=== PATIENT | female | born 1960 | race Caucasian/White ===

== ENCOUNTER 2022-08-31 10:30 | Emergency (ER) | payer MEDICAID, SELFPAY ==
[2022-08-31 10:31] VITALS: BP 139/85; PULSE 101; RESP 25; TEMP 37.3; O2SAT 94; BMI 20.1
[2022-08-31 10:39] VITALS: BP 139/85; PULSE 111; RESP 25; O2SAT 93
--- NOTE | 2022-08-31 10:39 | XRR_ITS ---
PROCEDURE INFORMATION: Exam: XR Chest Exam date and time: 08/31/2022 11:10 AM Age: 62 years old Clinical indication: Cough and shortness of breath; Additional info: Dyspnea/cough TECHNIQUE: Imaging protocol: Radiologic exam of the chest. Views: 1 view. COMPARISON: CT chest con [id number] 12/28/2018 11:58 AM FINDINGS: Airway: The trachea is deviated to the right. Lungs: There is new airspace disease in the right mid and lower lung zone silhouetting out the right hilum. No left-sided airspace disease. Pleural spaces: There is now a probably loculated right pleural effusion, at least moderate volume. No pneumothorax. No left pleural effusion. Heart/Mediastinum: The right border of the cardiac silhouette is silhouetted out but the heart is not felt to be enlarged. Bones/joints: No acute osseous abnormality XR/XR chest 1V portable [id number] IMPRESSION: New right-sided airspace disease and right pleural effusion. Given the unilaterality and the significant degree of change since the prior comparison study, further evaluation with CT CHEST with IV contrast is recommended as there is the possibility of interval development of neoplasm.
--- NOTE | 2022-08-31 10:47 | ED_ITS ---
HPI - SOB/Dyspnea General: Chief Complaint: Shortness of Breath/Dyspnea Stated Complaint: RESP DISTRESS Time Seen by Provider: 08/31/22 10:37 Source: patient Mode of arrival: ambulatory History of Present Illness: HPI Narrative: 62-year-old female presents emergency room complaining of productive cough. Patient has a history of COPD continues to smoke daily. EMS was called for productive cough shortness of breath she is found to be at 75% on room air on arrival. Normally she does not use any oxygen. She was given 6 mg dexamethasone. She has had intermittently productive cough for the last several days she feels like some progressively worsening low-grade fever as well. No vomiting no diarrhea no anosmia she denies chest or abdominal pain. MD elicited complaint: shortness of breath and cough Pertinent past history: COPD Onset (ago): day(s) Timing: constant and progressively worsening Severity: moderate Exacerbating factors: exertion and coughing Relieving factors: oxygen, rest and upright position Known history of: COPD Associated symptoms: Reports chest congestion and cough; Deny abdominal pain, chest pain, diaphoresis, dizziness, extremity pain, fever(s), hemoptysis, lightheadedness, myalgias, nausea, orthopnea, palpitations, paresthesias, polydipsia, polyuria, rash, sense of impending doom, syncope or vomiting Treatment prior to arrival: oxygen and other (Steroids) Review of Systems Const: Denies: fever(s) or diaphoresis ENMT: Denies: throat pain, ear or mastoid pain, nasal discharge or nasal congestion Card: Denies: chest pain, palpitations, lightheadedness, syncope or orthopnea Resp: Reports: chest congestion; Denies: hemoptysis GI: Denies: abdominal pain, nausea or vomiting : Denies: flank pain, difficulty voiding, dysuria, urinary frequency or urinary urgency Musc: Denies: extremity pain Skin/Breast: Denies: rash or pruritus Neuro: Denies: dizziness Endo: Denies: polyuria or polydipsia Physical Exam Const: COMMON NORMALS: no acute distress GENERAL APPEARANCE: cooperative and comfortable ORIENTATION/CONSCIOUSNESS: Yes awake, Yes oriented to person, Yes oriented to place and Yes oriented to time HENMT: COMMON NORMALS: normocephalic, atraumatic, hearing grossly normal bilaterally, external ears normal, EAC's normal, TM's normal bilaterally, Normal nasal mucous membranes and turbinates present, moist oral mucous membranes and oropharynx normal HEAD & SCALP: normocephalic and atraumatic NOSE: Normal nasal mucous membranes and turbinates present EXTERNAL EAR: Yes external ears normal EXTERNAL AUDITORY CANAL: EAC's normal TYMPANIC MEMBRANE: TM's normal bilaterally Eye: COMMON NORMALS: Equal, round and reactive pupils present, EOMs intact bilaterally, conjunctivae normal and no scleral icterus CONJUNCTIVA: Yes conjunctivae normal PUPIL: Yes Equal, round and reactive pupils present Neck/C-Spine: COMMON NORMALS: full ROM, no lymphadenopathy, supple and no JVD Lymph: LYMPHATIC: no lymphadenopathy noted and no lymphedema noted Resp: COMMON NORMALS: normal respiratory effort, No retractions, No use of accessory muscles and clear to auscultation bilaterally AUSCULTATION: clear to auscultation bilaterally Cardio: COMMON NORMALS: no JVD, regular rate, regular rhythm and No murmurs present (Cardio) RATE: regular rate RHYTHM: regular rhythm GI: COMMON NORMALS: Soft to palpation and No hepatosplenomegaly present AUSCULTATION: Yes normoactive bowel sounds PALPATION: Yes Soft to palpation, No Tenderness to palpation present (GI), No Guarding due to palpation present (G I) and Yes No hepatosplenomegaly present Extremity: COMMON NORMALS: normal to inspection, capillary refill normal, no clubbing, cyanosis or edema, no calf tenderness and no pedal edema Neuro: SENSORIUM/ORIENTATION: Yes oriented to person, Yes oriented to place and Yes oriented to time Skin: COMMON NORMALS: no rashes or lesions noted GENERAL SKIN EXAM: no rashes or lesions noted Course Vital Signs: Vital signs: Vital Signs Temperature 99.1 F 08/31/22 10:31 Pulse Rate 93 08/31/22 12:59 Respiratory Rate 19 H 08/31/22 12:59 Blood Pressure 119/73 08/31/22 12:59 Pulse Oximetry 96 08/31/22 12:59 Oxygen Delivery Me thod 08/31/22 12:59 Oxygen Flow Rate 5 08/31/22 12:59 MDM - SOB/Dyspnea Medical Decision Making Leukocytosis with large right pleural effusion. Strongly suspect carcinoma of the lung. Patient left AGAINST MEDICAL ADVICE. I counseled her on the importance of treatment and the seriousness of her condition especially her hypoxia. Uses to stay. She acknowledges that there is a high probability of significant decline in occluding potential for if she is not adequately tr eated and she still wishes to go Medical Records I reviewed the patient's medical records. Lab Data I reviewed the patient's lab results. : 08/31/22 10:45 08/31/22 10:45 Labs/Radiology: Radiology Impressions Chest X-Ray 08/31/22 10:39 IMPRESSION: New right-sided airspace disease and right pleural effusion. Given the unilaterality and the significant degree of change since the prior comparison study, further evaluation with CT CHEST with IV contrast is recommended as there is the possibility of interval development of neoplasm. ADDENDUM: 08/31/22 1154 There may be a subacute or chronic fracture of the posterolateral left 6th rib. ADDENDUM: 08/31/22 1155 THIS REPORT CONTAINS FINDINGS THAT MAY BE CRITICAL TO PATIENT CARE. The exam findings were verbally communicated by me to DR. LABOY via telephone conference at 11:50 AM CDT on 08/31/2022. The critical nature of the findings was acknowledged. DR. LABOY indicated they would relay the critical findings to DR. JENSEN, who is currently unavailable for a telephone conference. Chest CTA 08/31/22 11:15 IMPRESSION: 1. No sign of acute pulmonary embolism. 2. Occlusion of the bronchus intermedius and majority of the right middle and lower lobe bronchi. While there appears to be some fluid within the structures, an endobronchial mass cannot be excluded. 3. Consolidation in the right middle and lower lobes. This likely represents postobstructive pneumonia/atelectasis. 4. Right hilar and mediastinal lymphadenopathy. This represents an interval change since the prior comparison exam. 5. Loculated large right pleural effusion. Malignant pleural effusion not excluded. ADDENDUM: 08/31/22 1314 Findings were discussed with NELLI JENSEN at 08/31/2022 1:09 PM CDT. Discussed that I feel the findings are most likely due to bronchogenic malignancy, but additional workup is needed to confirm and stage. Laboratory Results WBC 23.5 10^3/uL (4.0-10.0) H 08/31/22 10:45 RBC 4.21 10^6/uL (4.1-5.3) 08/31/22 10:45 Hgb 13.2 g/dL (11.5-15.3) 08/31/22 10:45 Hct 40.7 % (37.0-47.0) 08/31/22 10:45 MCV 96.7 fl (81-99) 08/31/22 10:45 MCH 31.4 pg (28.0-34.0) 08/31/22 10:45 MCHC 32.4 g/dL (30.0-36.0) 08/31/22 10:45 RDW 13.9 % (12.1-15.1) 08/31/22 10:45 Plt Count 373 10^3/cmm (130-400) 08/31/22 10:45 MPV 8.7 fL (7.4-10.4) 08/31/22 10:45 Neut % (Auto) 90.7 % 08/31/22 10:45 Lymph % (Auto) 2.1 % 08/31/22 10:45 Mitchell % (Auto) 5.1 % 08/31/22 10:45 Eos % (Auto) 0.1 % 08/31/22 10:45 Baso % (Auto) 0.3 % 08/31/22 10:45 Neut # (Auto) 21.29 10^3/uL (1.8-7.7) H 08/31/22 10:45 Lymph # (Auto) 0.5 10^3/uL (0.8-4.8) L 08/31/22 10:45 Mitchell # (Auto) 1.2 10^3/uL (0.2-0.9) H 08/31/22 10:45 Eos # (Auto) 0.0 10^3/uL (0.0-0.8) 08/31/22 10:45 Baso # (Auto) 0.1 10^3/uL (0.0-0.1) 08/31/22 10:45 Nucleated RBC % (auto) 0 % 08/31/22 10:45 Nucleated RBCs # 0.0 /100WBC 08/31/22 10:45 Specimen Type Arterial 08/31/22 10:57 Sample Site Brachial, right 08/31/22 10:57 ABG pH 7.47 (7.35-7.45) H 08/31/22 10:57 ABG pCO2 42.9 mmHg (35-45) 08/31/22 10:57 ABG pO2 65.4 mmHg (80.0-100.0) L 08/31/22 10:57 ABG HCO3 31.4 mmol/L (22-26) H 08/31/22 10:57 ABG O2 Saturation 93.1 08/31/22 10:57 ABG Base Excess 7.0 mmol/L (-2.0-2.0) H 08/31/22 10:57 Rey Test N/a 08/31/22 10:57 A-a O2 Gradient 21.8 mmHg (5-10) H 08/31/22 10:57 Hematocrit 40.2 % (37-47) 08/31/22 10:57 Hgb O2 Saturation 90.3 % (95-100) L 08/31/22 10:57 Carboxyhemoglobin 2.4 %THgb (0.4-20.1) 08/31/22 10:57 Methemoglobin 0.7 % (0.4-1.5) 08/31/22 10:57 Total Hemoglobin 13.1 g/dL (12-16) 08/31/22 10:57 Sodium 127.0 mmol/L (131-143) L 08/31/22 10:57 Potassium 3.3 mmol/L (3.5-5.0) L 08/31/22 10:57 Glucose 160.0 mg/dL (70-115) H 08/31/22 10:57 Ionized Calcium 1.1 mmol/L (1.1-1.4) 08/31/22 10:57 O2 Delivery Device Nc 08/31/22 10:57 O2 Liters/Min 5.0 % 08/31/22 10:57 FiO2 40.0 % 08/31/22 10:57 Bell Hole Digger ID Amh 08/31/22 10:57 Sodium 130 mmol/L (136-145) L 08/31/22 10:45 Potassium 3.4 mmol/L (3.5-5.1) L 08/31/22 10:45 Chloride 91 mmol/L (98-107) L 08/31/22 10:45 Carbon Dioxide 31 mmol/L (22-29) H 08/31/22 10:45 Anion Gap 11.4 (5-19) 08/31/22 10:45 BUN 6 mg/dL (8-23) L 08/31/22 10:45 Creatinine 0.4 mg/dL (0.5-0.9) L 08/31/22 10:45 GFR Calculation 161.7 mL/min (90-130) H 08/31/22 10:45 Glucose 156 mg/dL (65-115) H 08/31/22 10:45 Calculated Osmolality 271 mOsm/kg (285-295) L 08/31/22 10:45 Lactic Acid 1.3 mmol/L (0.5-2.2) 08/31/22 11:42 Calcium 8.3 mg/dL (8.5-10.5) L 08/31/22 10:45 Total Bilirubin 0.3 mg/dL (0.15-1.2) 08/31/22 10:45 AST 14 U/L (0-32) 08/31/22 10:45 ALT 15 U/L (0-33) 08/31/22 10:45 Alkaline Phosphatase 113 U/L (35-105) H 08/31/22 10:45 Total Protein 5.5 g/dL (6.6-8.7) L 08/31/22 10:45 Albumin 2.4 g/dL (3.5-5.2) L 08/31/22 10:45 Globulin 3.1 g/dL (1.3-4.6) 08/31/22 10:45 Ethyl Alcohol < 10 mg/dL (0-10) 08/31/22 10:45 Coronavirus 229E (PCR) Not detected (NOT DETECT) 08/31/22 10:45 SARS-CoV-2 (PCR) Not detected (NOT DETECT) 08/31/22 10:45 Discharge Plan Discharge Patient Disposition: Left Against Medical Advice Clinical Impression: Acute exacerbation of chronic obstructive airways disease, Obstructive pneumonia, Hypoxia, Pleural effusion, right Condition: Stable Coding Level of Care Code ED Stone [employer] Concrete Washer for Jason Garrison
--- NOTE | 2022-08-31 10:53 | ECG_ITS ---
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 Measurements Intervals Schaller Rate: 109 P: 76 CT: 158 QRS: 96 QRSD: 81 T: 69 QT: 305 QTc: 412 Interpretive Statements SINUS TACHYCARDIA WITH OCCASIONAL VENTRICULAR PREMATURE COMPLEXES POSSIBLE LEFT ATRIAL ENLARGEMENT [-0.1mV P-WAVE IN V1/V2] BORDERLINE RIGHT AXIS DEVIATION [QRS AXIS > 90] No previous ECG available for comparison Electronically Signed On 09-01-2022 22:03:17 CDT by Ezekiel Patiño M.D. [id number]
[2022-08-31] MEDS: ipratropium-albuterol 3 mL Neb INHALATION (10:54)
[2022-08-31 11:03] VITALS: PULSE 101; RESP 24; O2SAT 95
[2022-08-31 11:04] LABS: Basophils # 0.1 10^3/uL (0.0-0.1); Basophils % 0.3 %; Eosinophils % 0.1 %; Hematocrit 40.7 % (37.0-47.0); Hemoglobin 13.2 g/dL (11.5-15.3); Lymphocytes # 0.5 10^3/uL (0.8-4.8); Lymphocytes % 2.1 %; Mean Corpuscular HGB Conc 32.4 g/dL (30.0-36.0); Mean Corpuscular Hemoglobin 31.4 pg (28.0-34.0); Mean Corpuscular Volume 96.7 fl (81-99); Mean Platelet Volume 8.7 fL (7.4-10.4); Monocytes # 1.2 10^3/uL (0.2-0.9); Monocytes % 5.1 %; Neutrophils # 21.29 10^3/uL (1.8-7.7); Neutrophils % 90.7 %; Nucleated Red Blood Cells % 0 %; Platelet Count 373 10^3/cmm (130-400); Red Blood Count 4.21 10^6/uL (4.1-5.3); Red Cell Distribution Width 13.9 % (12.1-15.1); White Blood Count 23.5 10^3/uL (4.0-10.0)
[2022-08-31 11:08] LABS: ABG PCO2 42.9 mmHg (35-45); ABG PH Result 7.47 (7.35-7.45); Alveolar-Arterial Oxygen Gradi 21.8 mmHg (5-10); Arterial Blood Gas Hematocrit 40.2 % (37-47); Blood Gas Operator Identificat AMH; Blood Gas Sample Site Brachial, right; Blood Gas Sample Type Arterial; Carboxyhemoglobin 2.4 %THgb (0.4-20.1); HCO3 ABG 31.4 mmol/L (22-26); HGB O2 Sat 90.3 % (95-100); Ionized Calcium Level - ABG 1.1 mmol/L (1.1-1.4); Methemoglobin 0.7 % (0.4-1.5); Oxygen Device NC; Oxygen Saturation ABG 93.1; PO2 ABG 65.4 mmHg (80.0-100.0); Potassium Level - ABG 3.3 mmol/L (3.5-5.0); Total Hemoglobin 13.1 g/dL (12-16)
[2022-08-31 11:12] VITALS: PULSE 101; RESP 24; O2SAT 95
--- NOTE | 2022-08-31 11:15 | CTR_ITS ---
PROCEDURE INFORMATION: Exam: CTA Chest With Contrast Exam date and time: 08/31/2022 12:17 PM Age: 62 years old Clinical indication: Shortness of breath; Additional info: Hypoxia TECHNIQUE: Imaging protocol: Computed tomographic angiography of the chest with contrast. 3D rendering (Not supervised by radiologist): MIP and/or 3D reconstructed images were created by the technologist. Radiation optimization: All CT scans at this facility use at least one of these dose optimization techniques: automated exposure control; mA and/or kV adjustment per patient size (includes targeted exams where dose is matched to clinical indication); or iterative reconstruction. Contrast material: OMNI 350; Contrast volume: 63 ml; Contrast route: INTRAVENOUS (IV); COMPARISON: CT chest wo con [id number] 12/28/2018 11:58 AM RADIATION DOSE METRICS: Total DLP (mGy-cm): 232.26 FINDINGS: Pulmonary arteries: No sign of acute pulmonary embolism. Aorta: No thoracic aortic aneurysm or dissection. Lungs: There is consolidation involving the right middle and lower lobes. The bronchus intermedius is occluded as are the majority of the right middle and lower lobe bronchi. There is at least fluid in these structures though an endobronchial mass cannot be excluded. Pleural spaces: There is a large, loculated right pleural effusion. No left pleural effusion. No pneumothorax. Heart: The heart is not enlarged. Trace pericardial effusion. Lymph nodes: There are enlarged mediastinal and right hilar lymph nodes. Adrenal glands: Bilateral adrenal nodules with attenuation measurements compatible with lipid rich adrenal adenomas. On the right this measures approximately 2.7 cm in long axis. On the left this measures approximately 3.3 cm in long axis. Bones/joints: Subacute versus chronic nonunited left 6th rib fracture. Soft tissues: There is stranding in the anterior/right lateral epicardial/lower anterior mediastinal fat which could be due to edema, inflammation or neoplastic infiltration. CT/CT angio chest PE protcl [id number] IMPRESSION: 1. No sign of acute pulmonary embolism. 2. Occlusion of the bronchus intermedius and majority of the right middle and lower lobe bronchi. While there appears to be some fluid within the structures, an endobronchial mass cannot be excluded. 3. Consolidation in the right middle and lower lobes. This likely represents postobstructive pneumonia/atelectasis. 4. Right hilar and mediastinal lymphadenopathy. This represents an interval change since the prior comparison exam. 5. Loculated large right pleural effusion. Malignant pleural effusion not excluded.
--- NOTE | 2022-08-31 11:15 | PC.NURSE ---
PT PLACED ON CONTINUOUS NIBP ,SPO2, AND CM
[2022-08-31 11:30] VITALS: BP 98/66; PULSE 112; RESP 18; O2SAT 96
[2022-08-31 11:31] LABS: Alanine Aminotransferase 15 U/L (0-33); Albumin Level 2.4 g/dL (3.5-5.2); Alkaline Phosphatase 113 U/L (35-105); Anion Gap 11.4 (5-19); Aspartate Amino Transferase 14 U/L (0-32); Blood Urea Nitrogen 6 mg/dL (8-23); Calcium 8.3 mg/dL (8.5-10.5); Carbon Dioxide 31 mmol/L (22-29); Chloride 91 mmol/L (98-107); Globulin 3.1 g/dL (1.3-4.6); Glomerular Filtration Rate 161.7 mL/min (90-130); Glucose 156 mg/dL (65-115); Osmolality Calculated 271 mOsm/kg (285-295); Potassium 3.4 mmol/L (3.5-5.1); Sodium 130 mmol/L (136-145); Total Bilirubin 0.3 mg/dL (0.15-1.2); Total Protein 5.5 g/dL (6.6-8.7)
[2022-08-31 11:36] LABS: Alcohol Level < 10 mg/dL (0-10)
[2022-08-31 12:23] LABS: Lactic Sepsis W/Reflex 1.3 mmol/L (0.5-2.2)
[2022-08-31] MEDS: levofloxacin-dextrose 5 % 750 MG/150 ML PREMIX 100 MG IV (12:32)
[2022-08-31] MEDS: sodium chloride 0.9% 1,496.85 ML 1496.85 ML IV (12:33)
[2022-08-31 12:59] VITALS: BP 119/73; PULSE 93; RESP 19; O2SAT 96
--- NOTE | 2022-08-31 13:20 | PC.NURSE ---
PT REQUESTED TO LEAVE AMA. DR JENSEN INFORMED PT THAT SHE NEEDS TO STAY AND RECIEVE CARE. DR JENSEN INFORMED PT THAT SHE COULD FROM HER ILLNESS. PT REQUESTS TO STOP MEDICATION ADMINISTRATION AND LEAVE AMA. PT SIGNED AMA FORM.
[2022-08-31 13:40] LABS: Adenovirus Not Detected (NOT DETECT); Chlamydia Pneumoniae Not Detected (NOT DETECT); Coronavirus 229E,HKU1,NL63,OC4 Not Detected (NOT DETECT); Human Metapneumovirus Not Detected (NOT DETECT); Human Rhinovirus/Enterovirus Not Detected (NOT DETECT); Influenza A Not Detected (NOT DETECT); Influenza A H1 Not Detected (NOT DETECT); Influenza A H1-2009 Not Detected (NOT DETECT); Influenza A H3 Not Detected (NOT DETECT); Influenza B Not Detected (NOT DETECT); Mycoplasma Pneumoniae Not Detected (NOT DETECT); Parainfluenza Virus Type 1 Not Detected (NOT DETECT); Parainfluenza Virus Type 2 Not Detected (NOT DETECT); Parainfluenza Virus Type 3 Not Detected (NOT DETECT); Parainfluenza Virus Type 4 Not Detected (NOT DETECT); Respiratory Syncytial Virus A Not Detected (NOT DETECT); Respiratory Syncytial Virus B Not Detected (NOT DETECT); SARS-COV-2 Not Detected (NOT DETECT)
== END 2022-08-31 13:20 | disposition left against medical advice (07) ==
PROVIDERS: Emergency Provider Family Medicine
DX: J44.1 Chronic obstructive pulmonary disease with (acute) exacerbation (principal); J44.0 Chronic obstructive pulmonary disease with (acute) lower respiratory infection; J16.8 Pneumonia due to other specified infectious organisms; R09.02 Hypoxemia; J90 Pleural effusion, not elsewhere classified; Z53.21 Procedure and treatment not carried out due to patient leaving prior to being seen by health care provider; Z20.822 Contact with and (suspected) exposure to COVID-19
CPT/HCPCS: 36415; 36600; 71045; 71275; 80051; 80053; 80307; 82330; 82805; 83605; 85025; 87040; 87070; 87205; 87635; 93005; 94640; 96365; 99285; J1956; J7030; Q9967

== ENCOUNTER 2022-08-31 15:52 | Emergency (ER) | payer MEDICAID, SELFPAY ==
[2022-08-31] VITALS (12 sets, daily range): BP systolic 93–121; BP diastolic 58–66; PULSE 83–95; RESP 15–26; TEMP 36.7; O2SAT 92–98
--- NOTE | 2022-08-31 16:20 | ED_ITS ---
HPI - SOB/Dyspnea General: Chief Complaint: Shortness of Breath/Dyspnea Stated Complaint: SOB Time Seen by Provider: 08/31/22 15:59 History of Present Illness: HPI Narrative: 62-year-old female with an obstructive pneumonia and a large right pleural effusion. Concerning for lung cancer. Patient left AMA earlier in the day and returns for admission. Labs were not repeated. See previous note. Course Vital Signs: Vital signs: Vital Signs Temperature 98.1 F 08/31/22 15:59 Pulse Rate 86 08/31/22 21:57 Respiratory Rate 18 08/31/22 21:57 Blood Pressure 110/62 08/31/22 21:57 Pulse Oximetry 95 08/31/22 21:57 Oxygen Delivery Me thod 08/31/22 21:07 Oxygen Flow Rate 2 08/31/22 21:07 MDM - SOB/Dyspnea Medical Decision Making Earlier in the day and a left AMA. She has an obstructive pneumonia large right pleural effusion and likely an underlying lung mass suspicious for lung CA. Transfer to [facility]. Transfer arrangements made patient informed and is agreeable Medical Records I reviewed the patient's medical records. Lab Data I reviewed the patient's lab results. Discharge Plan Discharge Patient Disposition: Xfer Short-Term Hosp Clinical Impression: Acute exacerbation of chronic obstructive airways disease, Obstructive pneumonia, Hypoxia, Pleural effusion, right Condition: Stable Referrals: Naida Patricia DO [Primary Care Provider] - Coding Level of Care Code ED Radiopharmacist for Jason Garrison
[2022-08-31] MEDS: sodium chloride 0.9% 1,000 ML 999 ML IV (16:30)
[2022-08-31] MEDS: cefepime 1,000 MG in sodium chloride 0.9% (plus) 50 ML 100 MG IV (20:58)
== END 2022-08-31 22:48 | disposition short-term general hospital (02) ==
PROVIDERS: Emergency Provider Family Medicine; PCP Family Medicine
DX: J44.0 Chronic obstructive pulmonary disease with (acute) lower respiratory infection (principal); J16.8 Pneumonia due to other specified infectious organisms; J44.1 Chronic obstructive pulmonary disease with (acute) exacerbation; R09.02 Hypoxemia; J90 Pleural effusion, not elsewhere classified
CPT/HCPCS: 96365; 99284; J0692; J7030

== ENCOUNTER 2022-12-04 10:19 | Outpatient (CLI) | payer MEDICAID, SELFPAY ==
--- NOTE | 2022-12-04 10:36 | XRR_ITS ---
PROCEDURE INFORMATION: Exam: XR Chest Exam date and time: 12/04/2022 10:38 AM Age: 62 years old Clinical indication: Condition or disease; Lung condition and disease; Pleural effusion; Other: Not specified; Prior surgery; Surgery type: Chest tube TECHNIQUE: Imaging protocol: Radiologic exam of the chest. Views: 2 views. COMPARISON: CR (CHEST, ) 08/31/2022 11:10 AM FINDINGS: Lungs: Pulmonary scarring noted. No significant airspace consolidation concerning for pneumonia. Pleural spaces: Trace right-sided pleural effusion versus scarring. Heart/Mediastinum: The cardiomediastinal silhouette is within normal limits. Bones/joints: Old left-sided 5th rib fracture again noted. XR/XR chest 2V* [id number] IMPRESSION: 1. Trace right-sided pleural effusion versus scarring. 2. No significant airspace consolidation concerning for pneumonia.
== END 2022-12-04 10:20 | disposition home or self-care (01) ==
PROVIDERS: PCP Family Medicine; Visit Provider Family Medicine
DX: J90 Pleural effusion, not elsewhere classified (principal)
CPT/HCPCS: 71046

== ENCOUNTER 2023-03-04 09:50 | Outpatient (CLI) | payer MEDICAID, SELFPAY ==
--- NOTE | 2023-03-04 10:09 | XRR_ITS ---
PROCEDURE INFORMATION: Exam: XR Chest Exam date and time: 03/04/2023 11:02 AM Age: 62 years old Clinical indication: Cough and dyspnea and shortness of breath; Prior surgery; Surgery type: Fluid drain 6mo ago TECHNIQUE: Imaging protocol: Radiologic exam of the chest. Views: 2 views. COMPARISON: CR XR chest 2V* [id number] 12/04/2022 10:38 AM FINDINGS: Lungs: Lung volumes are large. There is coarse reticular opacity and platelike opacity in the lower right lung. This finding is stable since 12/04/2022. There is no consolidation. Pleural spaces: There is no pleural effusion or pneumothorax. Heart/Mediastinum: Cardiomediastinal contours are unremarkable. Bones/joints: There is a healed or healing fracture of the anterolateral left 4th rib. No acute fracture. XR/XR chest 2V* [id number] IMPRESSION: 1. No acute findings. 2. Large lung volumes suggest COPD. 3. Stable scarring in the right lower lung.
== END 2023-03-04 09:51 | disposition home or self-care (01) ==
LOC: RAD 09:54
PROVIDERS: PCP Family Medicine; Visit Provider Family Medicine
DX: R06.00 Dyspnea, unspecified (principal); R05.9 Cough, unspecified; R06.02 Shortness of breath
CPT/HCPCS: 71046

== ENCOUNTER 2023-11-18 10:21 | Outpatient (CLI) | payer MEDICAID, SELFPAY ==
--- NOTE | 2023-11-18 10:33 | XR_ITS ---
WS: [id number] Chest 2 views, 11/18/2023 Clinical Data: ACUTE EXACERBATION,COPD Comparison: Two-view chest, 03/04/2023 Findings: There is a nodule in the right midlung measuring 1.0 cm which was not present on the prior x-ray. This nodule shows irregularity. There is linear atelectasis at the junction between the right middle lobe and right upper lobe extending to the pleural surface unchanged. The diaphragms are danica ened. There are no masses or pleural effusions. The heart is normal. The aortic arch and descending t horacic aorta show calcification and tortuosity. There is a healed posterior lateral left rib fractur e. Impression: 1. Small, 1.0 cm, nodule in midportion of right lung, probably right upper lobe and recommend CT scan of the chest. 2. Atherosclerosis and hyperinflation.
== END 2023-11-18 10:22 | disposition home or self-care (01) ==
LOC: RAD 10:22
PROVIDERS: PCP Family Medicine; Visit Provider Family Medicine
DX: J44.1 Chronic obstructive pulmonary disease with (acute) exacerbation (principal); R91.1 Solitary pulmonary nodule
CPT/HCPCS: 71046

== ENCOUNTER 2023-12-10 09:56 | Outpatient (CLI) | payer MEDICAID, SELFPAY ==
--- NOTE | 2023-12-10 09:58 | CT_ITS ---
WS: [id number] CT chest wo con [id number] HISTORY: LUNG NODULE TECHNIQUE: Axial imaging performed through the thorax. Coronal and sagittal reformats are submitted. All CT scans at [facility] use at least one of these dose optimization techniques: automated exposure control; mA and/or kV adjustment per patient size (includes targeted exams where dose is mat ched to clinical indication); or iterative reconstruction. CONTRAST: None DLP: 224.90 mGy.cm COMPARISON: 08/31/2022 and 12/28/2018 Lungs and central airway: Hyperinflated lungs from emphysema. Much improvement of the RIGHT thorax as compared to 08/31/2022. Spiculated nodule measuring 12 x 9 mm in the inferior segment RIGHT upper lob e. This spiculation has not been identified on prior studies. May have been present on 08/31/2022 but obscured by the fluid. Linear scar configuration the periphery RIGHT lower lobe is stable. Pleura: No pleural effusions. There is mild pleural thickening involving the fissures of the RIGHT th orax. Heart and pericardium: Normal size heart with no pericardial effusion. Mediastinum and anirudh: No mediastinum or hilar adenopathy. Vessels: Mild atherosclerosis the aorta. Pulmonary arteries mildly prominent. Chest wall and lower neck: No soft tissue masses. Upper abdomen: Bilateral previously described adrenal adenomas. Heavy calcification in the splenic ar roel. Osseous structures: No destructive process. IMPRESSION: 1. Spiculated nodule RIGHT upper lobe measures 12 x 9 mm. Indeterminate solid pulmonary nodule measuring 12 mm. In a patient of unknown risk level with a solid nodule >8 mm, consider PET/CT or tissue sampling, vs. CT at 3 months. 2. much improved aeration otherwise throughout the RIGHT thorax. 3. Chronic emphysema.
== END 2023-12-10 09:57 | disposition home or self-care (01) ==
LOC: RAD 09:56
PROVIDERS: PCP Family Medicine; Visit Provider Family Medicine
DX: R91.1 Solitary pulmonary nodule (principal); J43.9 Emphysema, unspecified
CPT/HCPCS: 71250

== ENCOUNTER → 2024-03-02 14:12 | Outpatient (BNVA) | payer MEDICAID, SELFPAY | PROVIDERS: PCP Family Medicine; Referring Provider Family Medicine; Visit Provider Internal Medicine Pulmonary Disease | DX: R91.1 Solitary pulmonary nodule (principal); F17.200 Nicotine dependence, unspecified, uncomplicated; J43.9 Emphysema, unspecified; F17.210 Nicotine dependence, cigarettes, uncomplicated | CPT/HCPCS: 99204 ==

== ENCOUNTER 2024-03-09 13:03 | Outpatient (CLI) | payer MEDICAID, SELFPAY ==
[2024-03-09 13:25] VITALS: PULSE 86; RESP 18; O2SAT 96
[2024-03-09] MEDS: albuterol 2.5 mg/3 mL Neb INHALATION (13:25)
[2024-03-09 13:30] VITALS: PULSE 83
== END 2024-03-09 13:04 | disposition home or self-care (01) ==
LOC: RT 13:04
PROVIDERS: PCP Family Medicine; Visit Provider Internal Medicine Pulmonary Disease
DX: R06.02 Shortness of breath (principal)
CPT/HCPCS: 94060; 94618; 94726; 94729; J7613

== ENCOUNTER 2024-03-23 10:16 | Outpatient (CLI) | payer MEDICAID, SELFPAY ==
--- NOTE | 2024-03-23 10:00 | PETR_ITS ---
PROCEDURE INFORMATION: Exam: PET/CT Skull Base to Mid-thigh Exam date and time: 03/23/2024 10:22 AM Age: 63 years old Clinical indication: Abnormal findings; Spiculated nodule right upper lobe measures 12 x 9 mm. Indeterminate solid pulmonary nodule measuring 12 mm. In a patient of unknown risk level with a solid nodule >8 mm, consider pet/ct or tissue sampling, vs. CT at 3 months. 2; Prior surgery; Surgery date: 6+ months; Surgery type: Lung bx; Additional info: Abnormal finding on imaging LABS AND CLINICAL REPORTS: Glucose: 134 mg/dl Treatment strategy for malignancy (PET staging): Initial Staging (PI) TECHNIQUE: Imaging protocol: Following at least four-hour fasting and following the injection of radiopharmaceutical, low dose CT images were obtained. Then, PET images were obtained. Attenuation corrected images were constructed using the CT scan. Fused images of PET and CT were reviewed. The standardized uptake values (SUV) reported below are maximum values within a region of interest, expressed in gm/ml. Exam includes orbital meatal line to mid-thigh. Radiopharmaceutical: 11.8 mCi F-18 FDG (Fluorodeoxyglucose), IV. Time of imaging post radiopharmaceutical administration: 1 hour Injection site: Right antecubital COMPARISON: CT chest 12/10/2023, CTA chest 08/31/2022, CT chest 12/28/2018 FINDINGS: Limitations: The examination is slightly technically suboptimal secondary to the scan to injection time outside of recommended parameters (45-75 minutes). Reported scan to injection time of 43.8 minutes. Injection to scan times outside of recommended parameters can result in decreased PET sensitivity and limit the utility of comparison of SUV values to prior or subsequent exams. Brain: Visualized brain has normal physiologic uptake. Pharynx: No abnormal uptake. Larynx: No abnormal uptake. Lungs, pleura and trachea: No abnormal uptake. A previously noted posterior right upper lobe nodular density is less conspicuous measuring approximately 6 mm on series 3, image 77, (SUV max 0.3) with a solid appearance and adjacent mild streaky density. This is new compared with 12/28/2018. Mild bilateral centrilobular emphysematous changes. Streaky linear density in the region of the major and minor fissures on the right is noted and is similar, compatible with scarring. An ovoid non radiotracer avid solid nodular density in the posterior right lower lobe measuring 0.9 x 0.3 cm on series 3, image 102 is similar and not radiotracer avid, (SUV max 0.7). This was present on the 12/28/2018 examination. Heart: Normal physiologic uptake. Mediastinal space: No abnormal uptake. Liver: No abnormal uptake. Gallbladder and bile ducts: No abnormal uptake. Pancreas: No abnormal uptake. Spleen: No abnormal uptake. Adrenal glands: No abnormal uptake. Low-density nodularity of the adrenal glands is noted, for example measuring 1.8 cm on the right on series 3, image 116 without elevated uptake on the right or left. Kidneys and ureters: Normal physiologic uptake. Stomach and bowel: No abnormal uptake. Vasculature: No abnormal uptake. There are diffuse atherosclerotic changes. Lymph nodes: No abnormal uptake. A precarinal lymph node measuring 1.6 x 1.2 cm on series 3, image 73 is not radiotracer avid. This lymph node is similar in size compared with at least 12/28/2018. Bones/joints: No abnormal uptake in the visualized axial and appendicular skeleton. The bones appear demineralized. An ununited posterolateral left 6 rib fracture is noted. Soft tissues: No abnormal uptake in the visualized head, neck, chest, abdomen, pelvis, and extremities. METRICS: Mediastinal blood pool: SUV max 2.1 [email or web address] [id number] IMPRESSION: 1. No evidence of radiotracer avid malignancy. 2. A previously noted right upper lobe nodular density is less prominent compared with 12/10/2023 and may be decreased in size or represent differences in slice thickness and slice selection between the current and prior examination. This nodule as well as a similar right lower lobe nodule are not radiotracer avid which favors a benign etiology, however, assessment of small nodules can be limited by PET-CT. 3. An ovoid nodular density in the right lower lobe has been present since at least 12/28/2018 compatible with a benign finding. No follow-up is necessary. 4. Low-density non radiotracer avid nodularity of the bilateral adrenal glands likely related to adenomas. 5. A mildly prominent precarinal lymph node is not radiotracer avid, stable since at least 12/28/2018 consistent with a benign finding. 6. Additional nonurgent findings as detailed above.
== END 2024-03-23 10:17 | disposition home or self-care (01) ==
LOC: RAD 10:16
PROVIDERS: PCP Family Medicine; Visit Provider Internal Medicine Pulmonary Disease
DX: R91.1 Solitary pulmonary nodule (principal)
CPT/HCPCS: 78815; A9552

== ENCOUNTER 2024-05-18 11:36 | Inpatient (IN) | payer MEDICARE, MEDICAID, SELFPAY ==
[2024-05-18] VITALS (50 sets, daily range): BP systolic 76–144; BP diastolic 41–93; PULSE 61–75; RESP 13–29; TEMP 36.7–36.9; O2SAT 92–100; BMI 21.0; BMI 22.6
--- NOTE | 2024-05-18 11:42 | XRR_ITS ---
PROCEDURE INFORMATION: Exam: XR Chest Exam date and time: 05/18/2024 11:48 AM Age: 63 years old Clinical indication: Other: Near syncope TECHNIQUE: Imaging protocol: Radiologic exam of the chest. Views: 1 view. COMPARISON: CT chest con [id number] 12/10/2023 10:08 AM FINDINGS: Lungs: There is scarring in the right midlung laterally. As well as the right lung base laterally. The previously noted nodule in the right perihilar region that was new on this study from 11/18/2023 has decreased in size. Previously measuring on plain film 1.2 cm and currently measuring 6.5 mm. There are no new nodules detected. There are no acute infiltrates and patient does not appear to be in congestive heart failure. Patient is lungs appear hyperinflated consistent with COPD. Pleural spaces: Unremarkable. No pleural effusion. No pneumothorax. Heart/Mediastinum: The heart size is within normal limits. 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 Scarring right lung 2. Interval decrease in size of previously noted right midlung zone nodule 3. Hyperinflation consistent COPD 4. No acute infiltrates
--- NOTE | 2024-05-18 11:42 | CT_ITS ---
WS: [id number] CT HEAD NONCONTRAST HISTORY: near syncope TECHNIQUE: Contiguous axial imaging performed through the brain in 2.5 mm imaging. Bone and soft tiss ue windows. Sagittal and coronal reformats reviewed. All CT scans at [facility] use at least one of these dose optimization techniques: automated exposure control; mA and/or kV adjustment per pa tient size (includes targeted exams where dose is matched to clinical indication); or iterative recon struction. DLP: 1022.46 mGy.cm COMPARISON: None available. No acute intracranial hemorrhage, midline shift or mass effect. Mild atrophy and mild small vessel ischemic disease. Prior RIGHT denton radiata lacunar infarct. Mild small vessel disease. Ventricles: Normal size with no hydrocephalus. No intra displacement of the cerebellar tonsils. Paranasal sinuses: As visualized are clear. Mastoid air cells: Well pneumatized. Calvarium and scalp: Skull is intact with no soft tissue edema or swelling. CT/CT head wo con* [id number] IMPRESSION: 1. No acute intracranial hemorrhage or edema. 2. Prior RIGHT denton radiata lacunar infarct. 3. Mild atrophy and small vessel ischemic disease.
--- NOTE | 2024-05-18 11:49 | ED_ITS ---
HPI - Syncope 2 General: Chief Complaint: Syncope Stated Complaint: Near Syncope Time Seen by Provider: 05/18/24 11:37 Source: patient and EMS Mode of arrival: EMS Limitations: no limitations History of Present Illness: 63-year-old female is here from EMS with a near syncopal event. States she started HCTZ a week ago and is just not felt well since then states she has had generalized weakness she states today she is felt weak throughout the day she had stood up and felt like she is going to pass out she did fall her caught her but she did not lose consciousness she has no slurred speech denies any focal weakness states she just feels tired Associated symptoms: Deny abdominal pain, chest pain, fever(s), headache(s) or nausea Review of Systems 2 Const: Reports: fatigue and malaise; Denies: fever(s), chills, body aches or change in appetite Eyes: Denies: blurry vision or eye discomfort ENMT: Denies: throat pain or dental pain Card: Reports: pre-syncope; Denies: chest pain Resp: Denies: dyspnea GI: Denies: abdominal pain, nausea, vomiting or diarrhea Musc: Denies: neck pain or back pain Skin/Breast: Denies: rash Neuro: Denies: headache(s) PFSH ED 2 PFSH: Family History Mother Thyroid disease Father Heart disease Hypertension Son Thyroid disease Daughter Thyroid disease Brother Hypertension Social History Smoking and tobacco/nicotine status: current every day tobacco/nicotine user cigarettes Packs smoked per day: 1 Years cigarettes smoked: 42 [ Other cigarette details: Smoking 42 years in 2023.] Physical Exam 2 Const: COMMON NORMALS: no acute distress, patient oriented x3 and healthy appearing HENMT: COMMON NORMALS: normocephalic and atraumatic HEAD & SCALP: n ormocephalic and atraumatic Eye: COMMON NORMALS: Equal, round and reactive pupils present and EOMs intact bilaterally PUPIL: Yes Equal, round and reactive pupils present Neck/C-Spine: COMMON NORMALS: full ROM and supple Chest: COMMONS NORMALS: normal inspection of the chest and normal palpation of entire chest wall Resp: COMMON NORMALS: normal respiratory effort, No retractions, No use of accessory muscles and clear to auscultation bilaterally AUSCULTATION: clear to auscultation bilaterally Cardio: COMMON NORMALS: regular rate, regular rhythm and No murmurs present (Cardio) RATE: regular rate RHYTHM: regular rhythm GI: COMMON NORMALS: Normal to inspection, nondistended, normoactive bowel sounds present, Soft to palpation, non-tender and no masses PALPATION: Yes Soft to palpation Extremity: COMMON NORMALS: normal to inspection and full ROM Neuro: COMMON NORMALS: patient oriented x3, moves all extremities and no focal motor deficits Psych: COMMON NORMALS: mental status grossly normal, Normal thought process present and cooperative THOUGHT PROCESS: Normal thought process present Skin: COMMON NORMALS: no rashes or lesions noted and no wounds GENERAL SKIN EXAM: no rashes or lesions noted Course 2 Vital Signs: Vital signs: Vital Signs Temperature 98.2 F 05/18/24 11:39 Pulse Rate 69 05/18/24 12:18 Respiratory Rate 13 05/18/24 11:59 Blood Pressure 113/64 05/18/24 12:18 Pulse Oximetry 92 05/18/24 12:18 Oxygen Delivery Me thod Room Air 05/18/24 12:18 MDM - Syncope Medical Decision Making Patient presents here with severe hyponatremia likely causing her weakness did give her fluids here she had no seizure she has no altered mental status I spoke to hospitalist will admit to ICU Medical Records I reviewed the patient's medical records. Lab Data I reviewed the patient's lab results. 05/18/24 11:46 05/18/24 12:51 Radiology Impressions Chest X-Ray 05/18/24 11:42 IMPRESSION: 1. Scarring right lung 2. Interval decrease in size of previously noted right midlung zone nodule 3. Hyperinflation consistent COPD 4. No acute infiltrates Head CT 05/18/24 11:42 IMPRESSION: 1. No acute intracranial hemorrhage or edema. 2. Prior RIGHT denton radiata lacunar infarct. 3. Mild atrophy and small vessel ischemic disease. Laboratory Results WBC 6.59 10^3/uL (3.29-11.43) 05/18/24 11:46 RBC 4.83 10^6/uL (3.85-5.65) 05/18/24 11:46 Hgb 15.40 g/dL (11.27-16.99) 05/18/24 11:46 Hct 41.3 % (36-47) 05/18/24 11:46 MCV 85.5 fl (85-98) 05/18/24 11:46 MCH 31.9 pg (27-33) 05/18/24 11:46 MCHC 37.3 g/dL (30-55) 05/18/24 11:46 RDW 12.1 % (12.1-15.1) 05/18/24 11:46 Plt Count 239 10^3/cmm (157-399) 05/18/24 11:46 MPV 9.7 fL (7.4-10.4) 05/18/24 11:46 Neut % (Auto) 76.5 % 05/18/24 11:46 Lymph % (Auto) 9.1 % 05/18/24 11:46 Louisa % (Auto) 12.1 % 05/18/24 11:46 Eos % (Auto) 1.5 % 05/18/24 11:46 Baso % (Auto) 0.2 % 05/18/24 11:46 Neut # (Auto) 5.04 10^3/uL (1.8-7.7) 05/18/24 11:46 Lymph # (Auto) 0.6 10^3/uL (0.8-4.8) L 05/18/24 11:46 Louisa # (Auto) 0.8 10^3/uL (0.2-0.9) 05/18/24 11:46 Eos # (Auto) 0.1 10^3/uL (0.0-0.8) 05/18/24 11:46 Baso # (Auto) 0.0 10^3/uL (0.0-0.1) 05/18/24 11:46 Nucleated RBC % (auto) 0 % 05/18/24 11:46 Nucleated RBCs # 0.0 /100WBC 05/18/24 11:46 Sodium 109 mmol/L (136-145) L* 05/18/24 12:51 Potassium 3.4 mmol/L (3.5-5.1) L 05/18/24 11:46 Chloride 67 mmol/L (98-107) L 05/18/24 11:46 Carbon Dioxide 28 mmol/L (22-29) 05/18/24 11:46 Anion Gap 16.4 (5-19) 05/18/24 11:46 BUN 4 mg/dL (8-23) L 05/18/24 11:46 Creatinine 0.4 mg/dL (0.5-0.9) L 05/18/24 11:46 GFR Calculation 161.2 mL/min (90-130) H 05/18/24 11:46 Glucose 142 mg/dL (65-115) H 05/18/24 11:46 POC Glucose 137 mg/dL (70-110) H 05/18/24 12:22 Calculated Osmolality 225 mOsm/kg (285-295) L 05/18/24 11:46 Calcium 9.0 mg/dL (8.5-10.5) 05/18/24 11:46 Total Bilirubin 1.2 mg/dL (0.15-1.2) 05/18/24 11:46 AST 27 U/L (0-32) 05/18/24 11:46 ALT 18 U/L (0-33) 05/18/24 11:46 Alkaline Phosphatase 79 U/L (35-105) 05/18/24 11:46 Total Protein 7.2 g/dL (6.6-8.7) 05/18/24 11:46 Albumin 4.6 g/dL (3.5-5.2) 05/18/24 11:46 Globulin 2.6 g/dL (1.3-4.6) 05/18/24 11:46 TSH 4.48 uIU/mL (0.27-4.20) H 05/18/24 11:46 All radiology interpretation(s) finalized by discharge EKG Data EKG 1: I personally reviewed and interpreted this EKG as follows: EKG interpretation date: 05/18/24 EKG interpretation time: 11:56 Interpretation: nsr hr [address] or t wave abnormalities qrs 100 qtc 461 Critical Care Time 2 Critical Care Time: Critical Care Time: Yes Total Critical Care Time: 40 Attestation: The high probability of a clinically significant, sudden or life threatening deterioration of the patient's electrolytes system(s) required my full and direct attention, intervention and personal management. The critical care time is as shown. This time is in addition to time spent performing any reported procedures but includes the following: [x] Data and vital sign review and interpretation [x] Patient assessment, examination and intervention [x] Documentation [x] Medication orders and management Discharge Plan Discharge Patient Disposition: Admitted As Inpatient Clinical Impression: Hyponatremia, Near syncope Condition: Stable Prescriptions: No Action Trelegy Ellipta 100-62.5-25 mcg blister with device 1 inh inhalation DAILY albuterol sulfate 2.5 mg /3 mL (0.083 %) solution for nebulization 2.5 mg inhalation Q6H PRN levothyroxine 50 mcg capsule 50 mcg PO DAILY losartan 50 mg tablet 100 mg PO DAILY furosemide 40 mg tablet 40 mg PO DAILY PRN potassium chloride 10 mEq capsule, extended release 10 meq PO DAILY PRN Rx Instructions: With furosemide albuterol sulfate 90 mcg/actuation HFA aerosol inhaler 2 puff inhalation Q6H PRN Referrals: Naida Patricia DO [Primary Care Provider] - Coding Level of Care Code ED Internal Audit Consultant for Jason Garrison
[2024-05-18] MEDS: sodium chloride 0.9% 1,000 ML 999 ML IV (11:55)
--- NOTE | 2024-05-18 11:56 | ECG_ITS ---
[facility] Test Date: 2024-05-18 Pat Name: Carol Garcia Department: Room: Gender: Female Reel Winder: : 1960 Requested By: Katie Bain Order Number: [id number] Reading MD: Andrews Leon M.D. Measurements Intervals [place] Rate: 67 P: 7 CA: 162 QRS: 70 QRSD: 100 T: 74 QT: 446 QTc: 473 Interpretive Statements SINUS RHYTHM Compared to ECG 08/31/2022 10:53:21 Sinus tachycardia no longer present Ventricular premature complex(es) no longer present Electronically Signed On 05-21-2024 13:22:33 CDT by Andrews Leon M.D. [email or web address]
[2024-05-18 11:59] LABS: Basophils % 0.2 %; Eosinophils # 0.1 10^3/uL (0.0-0.8); Eosinophils % 1.5 %; Hematocrit 41.3 % (36-47); Lymphocytes # 0.6 10^3/uL (0.8-4.8); Lymphocytes % 9.1 %; Mean Corpuscular HGB Conc 37.3 g/dL (30-55); Mean Corpuscular Hemoglobin 31.9 pg (27-33); Mean Corpuscular Volume 85.5 fl (85-98); Mean Platelet Volume 9.7 fL (7.4-10.4); Monocytes # 0.8 10^3/uL (0.2-0.9); Monocytes % 12.1 %; Neutrophils # 5.04 10^3/uL (1.8-7.7); Neutrophils % 76.5 %; Nucleated Red Blood Cells % 0 %; Platelet Count 239 10^3/cmm (157-399); Red Blood Count 4.83 10^6/uL (3.85-5.65); Red Cell Distribution Width 12.1 % (12.1-15.1); White Blood Count 6.59 10^3/uL (3.29-11.43)
[2024-05-18 12:22] LABS: Alanine Aminotransferase 18 U/L (0-33); Albumin Level 4.6 g/dL (3.5-5.2); Alkaline Phosphatase 79 U/L (35-105); Anion Gap 16.4 (5-19); Aspartate Amino Transferase 27 U/L (0-32); Blood Urea Nitrogen 4 mg/dL (8-23); Carbon Dioxide 28 mmol/L (22-29); Chloride 67 mmol/L (98-107); Creatinine Clr Calc Pharmacy 115.7311; Globulin 2.6 g/dL (1.3-4.6); Glomerular Filtration Rate 161.2 mL/min (90-130); Glucose 142 mg/dL (65-115); Osmolality Calculated 225 mOsm/kg (285-295); Potassium 3.4 mmol/L (3.5-5.1); Thyroid Stimulating Hormone 4.48 uIU/mL (0.27-4.20); Total Bilirubin 1.2 mg/dL (0.15-1.2); Total Protein 7.2 g/dL (6.6-8.7)
[2024-05-18 12:25] LABS: Glucose Point of Care 137 mg/dL (70-110)
[2024-05-18 12:30] LABS: Sodium 108 mmol/L (136-145)
[2024-05-18 13:14] LABS: Sodium 109 mmol/L (136-145)
--- NOTE | 2024-05-18 13:30 | PC.NURSE ---
PT O2 SATS 85-87% WHILE SLEEPING ROOM AIR. PLACED PT ON 2L NC. PT STATES SHE NORMALLY WEARS OXYGEN WHILE SHE SLEEPS
[2024-05-18 13:36] LABS: Magnesium 1.6 mg/dL (1.7-2.3)
--- NOTE | 2024-05-18 13:37 | PM.HP ---
Providers/Chief Complaint Admitting Physician: Sarita Baugh MD Primary Care Provider: Naida Patricia DO Chief Complaint: Near Syncope History of Present Illness Carol Garcia is a 63 year old female who presented to the emergency room with chief complaint of weakness. Symptoms began Friday morning. When she got up she noted that she was a bit unsteady and dizzy. That continued throughout the day. She has had a couple of episodes of some nausea and 4 episodes of vomiting since Friday. No diarrhea. Vomiting was spontaneous, small amounts of something that she had recently consumed. Weakness is generalized rather than focal. Today she almost passed out but her son who lives with her was near her and kept her from falling. No other episodes quite as bad. It was because of this episode that she came in for evaluation. History is obtained from her. She knew something was not right. Her breathing may have been a little bit worse but nothing significant. She has known COPD. She has had a mild cough, productive but no blood noted. No reports of any fevers. Quite tired recently. She has been more thirsty lately as well and urinating more but no dysuria or hematuria. It should be noted that she started hydrochlorothiazide on May 10 or . This was started by her primary care provider, Dr. Patricia, for hypertension that was not optimally managed. She takes losartan chronically and had been on Lasix as needed for lower extremity edema. Has not taken any Lasix since she started the hydrochlorothiazide. She had tried amlodipine in the past with result of lower extremity edema worsening. She does have a history of hypothyroidism for which she is on levothyroxine. Has not had dose today but is compliant with medications. Workup in the emergency room revealed severely low sodium level at 108. This was repeated and found to be 109. Chloride was also quite low. She has had muscle cramps in her calves the last couple of days frequently. No seizures or abnormal movements reported. No significant mental status change. She has been able to provide her own history. Given the severity of her hyponatremia she is being admitted for further management and evaluation. IV fluids were started in the emergency room. I was able to speak with Mrs. Garcia's primary care provider, Dr. Patricia and able to obtain lab results drawn prior to initiation of HCTZ this month as noted. LAB DONE BY PCP ON 05/10/2024: Na 132, K+ 4.7, Cl 94, CO2 23, BUN 6, Cr 0.6, Glu 119 Review of Systems General: Reports: Other (ROS as per HPI or as otherwise noted here) Const: Reports: fatigue; Denies: fever(s) or change in weight Eyes: Denies: change in vision ENMT: Reports: nasal congestion (allergies); Denies: throat pain Card: Reports: swelling of feet/ankles (not an issue the last week or so since started HCTZ), lightheadedness, dyspnea on exertion (chronic) and acrocyanosis (not new); Denies: chest pain Resp: Reports: dyspnea (maybe a little worse), productive cough and wheezing (always); Denies: change in phlegm color or hemoptysis GI: Reports: nausea and vomiting; Denies: abdominal pain, constipation or hematochezia : Reports: difficulty voiding and urinary frequency; Denies: flank pain or hematuria Musc: Reports: muscle cramps (calves last few days) and muscle weakness (general) Skin/Breast: Reports: sores (healing to right ayala); Denies: rash Neuro: Reports: lack of coordination, difficulty walking and dizziness; Denies: Slurred speech present, difficulty communicating thoughts, seizure-like activity or involuntary movements Psych: Reports: sleeping more Endo: Reports: polyuria and polydipsia Eleuterio/Lymph: Denies: easy bleeding All/Imm: Reports: seasonal rhinorrhea Medications/Allergies Home Medications Medication Instructions Recorded Confirmed Last Taken Type albuterol sulfate 90 mcg/actuation 2 puff inhalation Q6H PRN 03/02/24 05/18/24 05/17/24 History aerosol inhaler Shortness Of Breath fluticasone fur. 100 mcg-umeclid 1 inh inhalation DAILY 03/02/24 05/18/24 05/18/24 History 62.5 mcg-vilant 25 mcg inhalat.powder (Trelegy Ellipta) furosemide 40 mg tablet 40 mg PO DAILY PRN lower extremity 03/02/24 05/18/24 Unknown History edema levothyroxine 50 mcg capsule 50 mcg PO DAILY 03/02/24 05/18/24 05/10/24 History albuterol sulfate 2.5 mg/3 mL 2.5 mg inhalation QID PRN 05/18/24 05/18/24 Unknown History (0.083 %) solution for nebulization Shortness Of Breath Or Wheezing hydrochlorothiazide 25 mg tablet 25 mg PO DAILY 05/18/24 05/18/24 05/17/24 History losartan 100 mg tablet 100 mg PO DAILY 05/18/24 05/18/24 05/17/24 History Allergies Allergy/AdvReac Type Severity Reaction Status Date / Time No Known Allergies Allergy Verified 05/18/24 11:48 PFSH Acute PFSH: Medical History (Updated 05/18/24 @ 16:07 by Sarita Baugh MD) Lower extremity edema Hypertension Hypothyroidism History of echocardiogram 09/21 at [facility] EF 55-60%, normal B atria, mild TR, mild sclerosis AV Left rib fracture 6th rib, seen on CT imaging 2021 History of PFTs 03/2024 severe airflow obstruction, no significant response to bronchodilator, moderately reduced diffusion capacity Right upper lobe pulmonary nodule PET scan done 03/2024 with results under imaging in [facility] COPD (chronic obstructive pulmonary disease) Surgical History (Updated 05/18/24 @ 14:00 by Sarita Baugh MD) History of thoracentesis 09/21 [facility] right effusion, no malignant cells seen Hx of tonsillectomy H/O: hysterectomy History of bronchoscopy 09/21 [facility] History of lung biopsy At [facility] 09/21 RLL nodule, pathology showed benign bronchial was and alveolar tissue focally with features of organizing pneumonia. BAL right lung also done with no malignant cells, no fungi or pneumocystis identified Family History Mother Thyroid disease Father Heart disease Hypertension Son Thyroid disease Daughter Thyroid disease Brother Hypertension Social History Smoking and tobacco/nicotine status: current every day tobacco/nicotine user cigarettes Packs smoked per day: 1 Years cigarettes smoked: 42 [ Other cigarette details: Smoking 42 years in 2023.] Vitals/I&O/Wt Last Vital Signs Temp 98.2 F 05/18/24 11:39 Pulse 69 05/18/24 12:18 Resp 13 05/18/24 11:59 BP 113/64 05/18/24 12:18 Pulse Ox 92 05/18/24 12:18 O2 Del Method Room Air 05/18/24 12:18 ORTHOSTATIC VITALS 05/18/24 14:30 Pulse Rate [Orthostatic Lying] 67 Pulse Rate [Orthostatic Sitting] 65 Pulse Rate [Orthostatic Standing] 70 Blood Pressure [Orthostatic Lying Right Arm] 133/64 Blood Pressure [Orthostatic Sitting Right Arm] 122/64 Blood Pressure [Orthostatic Standing Right Arm] 76/55 05/17/24 05/18/24 05/18/24 22:59 06:59 14:59 Intake Total 1000 / 1000 Balance 1000 / 1000 Weight last 48 hrs Weight 52.163 kg Physical Exam Narrative: Patient is awake and alert. Able to provide history. Oriented to person place and situation. Small build. Normocephalic. Extraocular movements are intact. Pupils are reactive. Some acrocyanosis is noted involving tip of nose, hands and feet. Dry mucous membranes. Neck is supple. Lungs with occasional expiratory and consistent expiratory wheezing noted. Occasional pursed lip breathing. Oxygen tubing is in place. Cardiovascular exam reveals a regular rate and rhythm. No murmurs gallops or rubs. Abdomen is soft, nontender with positive bowel sounds. Extremities there is no pitting edema or acute synovitis. Chronic rather than acute skin changes noted with the exception of a healing sore to the mid right ayala with some surrounding desquamation. Capillary refill around 3 seconds. Speech is clear, face symmetric, moves all extremities but is generally weak. Data 05/18/24 11:46 05/18/24 12:51 Other Labs: Radiology Impressions Chest X-Ray 05/18/24 11:42 IMPRESSION: 1. Scarring right lung 2. Interval decrease in size of previously noted right midlung zone nodule 3. Hyperinflation consistent COPD 4. No acute infiltrates Head CT 05/18/24 11:42 IMPRESSION: 1. No acute intracranial hemorrhage or edema. 2. Prior RIGHT denton radiata lacunar infarct. 3. Mild atrophy and small vessel ischemic disease. Laboratory Results WBC 6.59 10^3/uL (3.29-11.43) 05/18/24 11:46 RBC 4.83 10^6/uL (3.85-5.65) 05/18/24 11:46 Hgb 15.40 g/dL (11.27-16.99) 05/18/24 11:46 Hct 41.3 % (36-47) 05/18/24 11:46 MCV 85.5 fl (85-98) 05/18/24 11:46 MCH 31.9 pg (27-33) 05/18/24 11:46 MCHC 37.3 g/dL (30-55) 05/18/24 11:46 RDW 12.1 % (12.1-15.1) 05/18/24 11:46 Plt Count 239 10^3/cmm (157-399) 05/18/24 11:46 MPV 9.7 fL (7.4-10.4) 05/18/24 11:46 Neut % (Auto) 76.5 % 05/18/24 11:46 Lymph % (Auto) 9.1 % 05/18/24 11:46 Kimball % (Auto) 12.1 % 05/18/24 11:46 Eos % (Auto) 1.5 % 05/18/24 11:46 Baso % (Auto) 0.2 % 05/18/24 11:46 Neut # (Auto) 5.04 10^3/uL (1.8-7.7) 05/18/24 11:46 Lymph # (Auto) 0.6 10^3/uL (0.8-4.8) L 05/18/24 11:46 Kimball # (Auto) 0.8 10^3/uL (0.2-0.9) 05/18/24 11:46 Eos # (Auto) 0.1 10^3/uL (0.0-0.8) 05/18/24 11:46 Baso # (Auto) 0.0 10^3/uL (0.0-0.1) 05/18/24 11:46 Nucleated RBC % (auto) 0 % 05/18/24 11:46 Nucleated RBCs # 0.0 /100WBC 05/18/24 11:46 Sodium 109 mmol/L (136-145) L* 05/18/24 12:51 Potassium 3.4 mmol/L (3.5-5.1) L 05/18/24 11:46 Chloride 67 mmol/L (98-107) L 05/18/24 11:46 Carbon Dioxide 28 mmol/L (22-29) 05/18/24 11:46 Anion Gap 16.4 (5-19) 05/18/24 11:46 BUN 4 mg/dL (8-23) L 05/18/24 11:46 Creatinine 0.4 mg/dL (0.5-0.9) L 05/18/24 11:46 GFR Calculation 161.2 mL/min (90-130) H 05/18/24 11:46 Glucose 142 mg/dL (65-115) H 05/18/24 11:46 POC Glucose 137 mg/dL (70-110) H 05/18/24 12:22 Calculated Osmolality 225 mOsm/kg (285-295) L 05/18/24 11:46 Calcium 9.0 mg/dL (8.5-10.5) 05/18/24 11:46 Total Bilirubin 1.2 mg/dL (0.15-1.2) 05/18/24 11:46 AST 27 U/L (0-32) 05/18/24 11:46 ALT 18 U/L (0-33) 05/18/24 11:46 Alkaline Phosphatase 79 U/L (35-105) 05/18/24 11:46 Total Protein 7.2 g/dL (6.6-8.7) 05/18/24 11:46 Albumin 4.6 g/dL (3.5-5.2) 05/18/24 11:46 Globulin 2.6 g/dL (1.3-4.6) 05/18/24 11:46 TSH 4.48 uIU/mL (0.27-4.20) H 05/18/24 11:46 Other Laboratory Tests 05/18/24 12:51 Phosphorus 2.7 Magnesium 1.6 L OLD SODIUM/CHLORIDE LEVEL from 202108/31/22 10:45 Sodium 130 L Chloride 91 L A&P Assessment and plan (1) Hyponatremia: Critical hyponatremia with sodium 108-109 today. Has associated hypo-osmolarity, hypochloremia. Some degree of volume loss from increased urine output along with report of maybe 4 episodes of small volume vomiting since Friday. No diarrhea. Primary factor is addition of hydrochlorothiazide for antihypertensive management to her medication regimen on May 10. Prior to starting that medication sodium was 132. She has baseline low sodium levels going back as far as 2021 so expect that she has a degree of chronic SIADH in addition to adverse effect of hydrochlorothiazide. Primary symptoms are weakness and dizziness along with muscle cramping and general fatigue. (2) Adverse effect of hydrochlorothiazide: Initial encounter, as described above. (3) Hypomagnesemia: Contributing factor to presentation (4) Hypokalemia: Contributing factor to presentation (5) Hypertension: Primary hypertension, has been managed on Losartan, but over time blood pressures have not been optimally controlled despite compliance with medication. She was initially trialed with amlodipine but that increased lower extremity edema which is a chronic problem for her. HCTZ was added on May 06 for blood pressure management with adverse reaction of severe hyponatremia as described here. She does have furosemide on her home medication list but it was prescribed for lower extremity edema which has been significant at times. (6) COPD (chronic obstructive pulmonary disease): Chronic, mixed panlobular emphysema, not acutely exacerbated presently. Some increase in shortness of breath related to severe electrolyte abnormalities. Always wheezes to some degree. Managed with Trelegy and as needed albuterol. On chronic oxygen at 2 L by nasal cannula which she wears with sleep and when she is walking around. Has acrocyanosis. PFTs in March of this year showed severe obstructive defect with limited response to bronchodilators and decreased diffusion capacity. (7) Hypothyroidism: Acquired hypothyroidism on levothyroxine replacement. TSH today in an acute setting is slightly above normal range but with normal free T3 and free T4. (8) Right upper lobe pulmonary nodule: Along with RLL findings. Worked up at [facility] in 2021 with bronchoscopy, bronchoalveolar lavage, biopsy. No specimens revealed any malignant cells. Had a PET scan in March of this year which showed no radiotracer avid malignancy. The right upper lobe nodular density was less prominent. A nodular density in the right lower lobe was similar in size to December 2018 as was a prominent precarinal lymph node. No recent changes in weight or reports of hemoptysis. (9) Lower extremity edema: Chronic diagnosis for which patient was started on Lasix. She takes it only as needed. Has not had any in the last couple of weeks so it is not a contributor to the hyponatremia that she presents with. Review of old records shows that she did have an echocardiogram at [facility] in 2021 with ejection fraction at that time of 55 to 60% and mild tricuspid regurgitation. No mention of increased pulmonary pressures. Patient admits that edema was present prior to initiation of hydrochlorothiazide but that it subsequently resolved. Edema worsened with amlodipine. (10) Smoker: 40+ pack year history, working on trying to quit all the time , currently smoking pack per day Plan Elevated blood sugar along with increase urine output and thirst. Suspect latter 2 findings related to diuresis and former reactive in nature, but is on chronic inhaled steroid Orthostatic hypotension, in part from volume losses with diuresis Dysuria, pending urinalysis Inpatient admission ICU level care secondary to degree of hyponatremia, at least initially Low rate of IV fluids I have ordered for urine electrolytes, uric acid level Urinalysis is still pending collection, follow-up and address accordingly particularly given dysuria Serial labs Nephrology consultation, have spoken with Dr. Orozco, as I suspect she has a degree of chronic SIADH in addition to adverse reaction to HCTZ Will list HCTZ as an allergy Replace magnesium Replace potassium Currently holding all antihypertensives including home losartan which I suspect we will be able to resume. Will not resume HCTZ. Furosemide was a as needed medicine for lower extremity edema Strict I's and O's and daily weights Will have to monitor for recurrent lower extremity edema Will check an echocardiogram to have more recent ejection fraction and if we can get it evaluation of pulmonary pressures. There may be an element of secondary hypertension contributing to longstanding diagnosis of primary hypertension In place of home Trelegy plus albuterol will offer budesonide and DuoNebs while here Monitor for acute on chronic respiratory symptoms Continue home levothyroxine Nicotine patch if needed Check hemoglobin A1c with morning labs Recheck orthostatic vital signs tomorrow VTE prophylaxis: Lovenox, 30 mg every 24 hours given body weight GI Prophylaxis: PPI Antibiotics: none presently Pending studies: Urinalysis, urine electrolytes, uric acid, echocardiogram and serial sodium levels Telemetry: Currently ordered secondary to electrolyte abnormalities Valenzuela: not currently indicated though we are monitoring strict I's and O's Line(s): peripheral IVs Disposition plan: Home with outpatient follow up to primary care provider with follow-up electrolytes/BMP check after discharge. I did personally speak with Dr. Patricia and she is aware and in agreement with this plan. Patient goes to [facility] for her primary care Code Status: Full Code Supportive care otherwise Findings, concerns and plans were discussed with patient and she was given an opportunity to ask questions Attestations Medical Necessity Statement*: Anticipated stay greater than two midnights in this 63-year-old with a critically low sodium level at 109. She is symptomatic and currently being closely monitored in the ICU with serial labs, IV fluids, nephrology consultation. Diagnoses Hyponatremia E87.1 Adverse effect of hydrochlorothiazide T50.2X5A Hypomagnesemia E83.42 Hypokalemia E87.6 Hypertension I10 COPD (chronic obstructive pulmonary disease) J44.9 Hypothyroidism E03.9 Right upper lobe pulmonary nodule R91.1 Lower extremity edema R60.0 Smoker F17.200
[2024-05-18 13:48] LABS: Phosphorus 2.7 mg/dL (2.5-4.5)
--- NOTE | 2024-05-18 14:49 | PC.NURSE ---
1435 Blood pressure sitting on edge of bed 122/64 HR 65. Standing B/P 76/55 HR 64. Laying in bed with HOB at 45 degree B/P 133/[address] Baugh here and notified. UA spec sent to lab.
[2024-05-18 15:05] LABS: Free T4 Free Thyroxine 1.57 ng/dL (0.82-1.77); T3 Free 2.4 PG/ML (2.0-4.4); Uric Acid 2.6 mg/dL (2.4-5.7)
[2024-05-18 15:09] LABS: Urine Appearance Clear (CLEAR); Urine Color Yellow (Yellow); pH Urine 7 (5-7)
[2024-05-18 15:10] LABS: Add Urine Microscopic? YES; Bilirubin Urine Neg (Negative); Blood Urine Neg (Negative); Glucose Urine UA Norm (Normal); Ketones Urine 1+ (Negative); Leukocyte Esterase Urine 1+ (Negative); Nitrate Urine Negative (Negative); Protein Urine Neg (Negative); Urobilinogen Urine Norm (Negative)
[2024-05-18 15:23] LABS: Potassium, Radom Urine 14 mmol/L; Urine Creatinine 15 mg/dL (28-217)
[2024-05-18 15:24] LABS: Add Urine Culture? No; Bacteria Urine TRACE /hpf; Squamous Epithelial Cell Urine 0-4 /hpf (0-5); WBC Urine 0-4 /hpf (0-5)
[2024-05-18 15:28] LABS: Urine Random Chloride 15 mmol/L; Urine Random Sodium 15 mmol/L
[2024-05-18] MEDS: magnesium sulfate premix 2 GM/50 ML PIGGYBACK IV (15:46)
[2024-05-18] MEDS: enoxaparin 30 mg/0.3 mL Syringe SUBCUT (15:46)
[2024-05-18 15:54] LABS: Urea Nitrogen,Urine Random 86 mg/dL
[2024-05-18] MEDS: sodium chloride 0.9% 1,000 ML 75 ML IV (16:01)
[2024-05-18] MEDS: potassium chloride ER 20 mEq Tablet 40 MEQ PO (16:04)
--- NOTE | 2024-05-18 16:23 | USCV_ITS ---
Carol Garcia Age: 63 Gender: F : 1960 Exam Date: 05/18/2024 18:01 Ordering Phys: Sarita Baugh MD Technologist: KRISS [place]am [place] [facility] [place]: lower extremity edema, HTN, COPD, long-term smoker continues smoking. BP: 121 / 63 HR: 68 Rhythm: Sinus Technical Quality: Adequate MEASUREMENTS (Male / Female) Normal Values 2D ECHO LV Diastolic Diameter PLAX 3.6 cm 4.2 - 5.9 / 3.9 - 5.3 cm IVS Diastolic Thickness 1.3 cm 0.6 - 1.0 / 0.6 - 0.9 cm IVS Systolic Thickness 1.6 cm LVPW Diastolic Thickness 1.6 cm 0.6 - 1.0 / 0.6 - 0.9 cm LVPW Systolic Thickness 1.7 cm LVOT Diameter 1.8 cm LV Ejection Fraction 2D Teich 67.6 % LV Ejection Fraction MOD 2C 63.4 % LV Ejection Fraction 2C AL 66.2 % LA Diameter 3.5 cm Aorta at Sinotubular Diameter 2.3 cm IVC Diameter 1.5 cm M-MODE LA Ao Ratio MM 1.0 AV Cusp Separation MM 1.7 cm DOPPLER AV Peak Velocity 117.0 cm/s LVOT Peak Velocity 54.0 cm/s AV Area Cont Eq vti 1.3 cm squared AV Area Cont Eq pk 1.1 cm squared MV Peak Velocity 75.0 cm/s MV Area PHT 2.9 cm squared Mitral E to A Ratio 0.8 TV Peak Velocity 248.0 cm/s TR Peak Velocity 258.0 cm/s TR Peak Gradient 26.6 mmHg TV Peak E Velocity 55.0 cm/s Right Atrial Pressure 3.0 mmHg Pulmonary Artery Systolic Pressu 29.6 mmHg PV Peak Velocity 120.0 cm/s FINDINGS Left Ventricle Normal left ventricular size, systolic function and wall thickness, with no regional wall motion abnormalities. Normal left ventricular wall thickness.left ventricular ejection fraction is estimated at 60 %. Grade I/IV diastolic dysfunction (abnormal relaxation filling pattern), normal to mildly elevated filling pressures. Right Ventricle The right ventricle is normal in size and function. Right Atrium The right atrium is normal in size. Left Atrium The left atrium is normal in size. Mitral Valve Structurally normal mitral valve without significant stenosis or prolapse. There is no mitral regurgitation. Aortic Valve Moderate aortic valve calcification. No aortic valve stenosis. Tricuspid Valve Structurally normal tricuspid valve without significant stenosis or regurgitation. Pulmonary artery systolic pressure is normal. Pulmonic Valve Structurally normal pulmonic valve without significant stenosis. There is mild pulmonic regurgitation. Pericardium Normal pericardium without effusion. Aorta Normal ascending aorta dimension. IVC The inferior vena cava appears normal. CONCLUSIONS 1-Normal left ventricular size, systolic function and wall thickness, with no regional wall motion abnormalities. Normal left ventricular wall thickness.left ventricular ejection fraction is estimated at 60 %. Grade I/IV diastolic dysfunction (abnormal relaxation 2-filling pattern), normal to mildly elevated filling pressures. 3-There is no pericardial effusion. 4-Right atrial pressure is around 5 mm of mercury. Denise Mcclendon MD (Electronically Signed) Final Date: 18 May 2024 19:50 S
[2024-05-18] MEDS: ipratropium-albuterol 3 mL Neb INHALATION ×2 (16:25→19:57)
[2024-05-18] MEDS: potassium chloride premix 100 ML 25 MEQ IV (17:28)
--- NOTE | 2024-05-18 17:42 | PC.NURSE ---
1730 Started KCL 20meq IV at 10meq/hr, patient complained immediately of burning pain, decresed rate by half, and then still complained of pain not wanting it to infuse. Notified dr. nino of complaint, and said to stop infusion and chart of patient not able to tolerate it.
[2024-05-18] MEDS: magnesium oxide 400 mg tablet PO (17:46)
[2024-05-18] MEDS: cefTRIAXone 1,000 MG in sodium chloride 0.9% (plus) 50 ML 100 MG IV (18:38)
--- NOTE | 2024-05-18 19:49 | PM.CONSULT ---
Providers/Reason For Consult Consulting Physician/Specialty*: kommana/Nephrology Reason for Consult*: hyponatremia Attending Physician: Sarita Baugh MD Primary Care Provider: Naida Patricia DO History of Present Illness History of Present Illness Carol Garcia is a 63 year old female Patient is a 63-year-old female with past medical history of hypertension hypothyroidism, CHF COPD presented to the emergency department due to generalized weakness and near syncope. Patient also complained of being dizzy and unsteady on her gait. Patient was noted to be orthostatic in the ER. Also had some nausea and vomiting with poor p.o. intake. She was recently started on HCTZ about a week ago and her symptoms more or less started after the medication was started. In the emergency department lab data has revealed that the sodium level was 109 also has low potassium of 3.4. Known lung nodule was noted on the x-ray. Lab Review of Systems Narrative: other ROS negative Medications/Allergies Home Medications Medication Instructions Recorded Confirmed Last Taken Type albuterol sulfate 90 mcg/actuation 2 puff inhalation Q6H PRN 03/02/24 05/18/24 05/17/24 History aerosol inhaler Shortness Of Breath fluticasone fur. 100 mcg-umeclid 1 inh inhalation DAILY 03/02/24 05/18/24 05/18/24 History 62.5 mcg-vilant 25 mcg inhalat.powder (Trelegy Ellipta) furosemide 40 mg tablet 40 mg PO DAILY PRN lower extremity 03/02/24 05/18/24 Unknown History edema levothyroxine 50 mcg capsule 50 mcg PO DAILY 03/02/24 05/18/24 05/10/24 History albuterol sulfate 2.5 mg/3 mL 2.5 mg inhalation QID PRN 05/18/24 05/18/24 Unknown History (0.083 %) solution for nebulization Shortness Of Breath Or Wheezing hydrochlorothiazide 25 mg tablet 25 mg PO DAILY 05/18/24 05/18/24 05/17/24 History losartan 100 mg tablet 100 mg PO DAILY 05/18/24 05/18/24 05/17/24 History Allergies Allergy/AdvReac Type Severity Reaction Status Date / Time hydrochlorothiazide AdvReac Severe hyponatremi Verified 05/18/24 17:54 a Current Medications Generic Name Dose Route Start Last Admin Trade Name Freq PRN Reason Stop Dose Admin Albuterol/Ipratropium 3 ml 05/18/24 15:55 05/18/24 16:25 Ipratropium-Albuterol 3 Ml Neb INHALATION 3 ml Q6H PRN Administration SHORTNESS OF BREATH Enoxaparin Sodium 30 mg 05/18/24 15:30 05/18/24 15:46 Enoxaparin 30 Mg/0.3 Ml Syringe SUBCUT 30 mg Q24H SONNY Administration Sodium Chloride 1,000 mls @ 75 mls/hr 05/18/24 15:30 05/18/24 16:01 Sodium Chloride 0.9% IV 75 mls/hr .[id number] SONNY Administration Magnesium Oxide 400 mg 05/18/24 18:00 05/18/24 17:46 Magnesium Oxide 400 Mg Tablet PO 400 mg BID SONNY Administration PFSH Acute PFSH: Medical History (Updated 05/18/24 @ 16:07 by Sarita Baugh MD) Lower extremity edema Hypertension Hypothyroidism History of echocardiogram 09/21 at [facility] EF 55-60%, normal B atria, mild TR, mild sclerosis AV Left rib fracture 6th rib, seen on CT imaging 2021 History of PFTs 03/2024 severe airflow obstruction, no significant response to bronchodilator, moderately reduced diffusion capacity Right upper lobe pulmonary nodule PET scan done 03/2024 with results under imaging in [facility] COPD (chronic obstructive pulmonary disease) Surgical History (Updated 05/18/24 @ 14:00 by Sarita Baugh MD) History of thoracentesis 09/21 [facility] right effusion, no malignant cells seen Hx of tonsillectomy H/O: hysterectomy History of bronchoscopy 09/21 [facility] History of lung biopsy At [facility] 09/21 RLL nodule, pathology showed benign bronchial was and alveolar tissue focally with features of organizing pneumonia. BAL right lung also done with no malignant cells, no fungi or pneumocystis identified Family History Mother Thyroid disease Father Heart disease Hypertension Son Thyroid disease Daughter Thyroid disease Brother Hypertension Social History Smoking and tobacco/nicotine status: current every day tobacco/nicotine user cigarettes Packs smoked per day: 1 Years cigarettes smoked: 42 [ Other cigarette details: Smoking 42 years in 2023.] Vitals/I&O/Wt Last Vital Signs Temp 98.1 F 05/18/24 14:11 Pulse 65 05/18/24 18:15 Resp 16 05/18/24 18:15 BP 129/72 05/18/24 18:15 Pulse Ox 95 05/18/24 18:15 O2 Del Method Nasal Cannula 05/18/24 16:26 O2 Flow Rate 2 05/18/24 16:26 05/18/24 05/18/24 05/18/24 06:59 14:59 22:59 Intake Total 1000 / 1000 3.883 / 1003.883 Output Total 1300 / 1300 Balance 1000 / 1000 -1296.117 / -296.117 Weight last 48 hrs Weight 56.019 kg Weight 52.163 kg Physical Exam Narrative: Awake, alert, HEENT, no distress, S1-S2 regular rate and rhythm per report Lungs clear per report No pedal edema Data 05/18/24 11:46 05/18/24 12:51 A&P Assessment and plan (1) Hyponatremia: 1. Hyponatremia: Hypoosmolar and hypovolemic. Multifactorial due to recent HCTZ initiation and poor p.o. intake. Noted low urine sodium and chloride, urine osmolality pending. -Agree with gentle IV fluids-normal saline at 75 cc an hour for now and await repeat BMP. Check BMP every 4 hours. -Check TSH and cortisol levels -Monitor closely. 2. Hypertension: Stopped HCTZ , losartan on hold in the setting of orthostatic hypotension, blood pressure controlled currently 3. Hypokalemia: Replete potassium 4. History of COPD Patient evaluated using audiovisual cart. Time spent 40 minutes. Consult Attestations Medical Necessity Statement: per medicine team Coding Level of Care Code Acute Code for Chg Fwd Diagnoses Hyponatremia E87.1
[2024-05-18 19:53] LABS: Anion Gap 8.3 (5-19); Blood Urea Nitrogen 4 mg/dL (8-23); Calcium 8.3 mg/dL (8.5-10.5); Carbon Dioxide 30 mmol/L (22-29); Chloride 77 mmol/L (98-107); Creatinine Clr Calc Pharmacy 158.9817; Glomerular Filtration Rate 224.7 mL/min (90-130); Glucose 139 mg/dL (65-115); Osmolality Calculated 233 mOsm/kg (285-295); Potassium 3.3 mmol/L (3.5-5.1)
[2024-05-18] MEDS: budesonide 0.5 mg/2 mL Neb INHALATION (19:57)
[2024-05-18 20:00] LABS: Sodium 112 mmol/L (136-145)
[2024-05-19] VITALS (34 sets, daily range): BP systolic 98–146; BP diastolic 49–72; PULSE 61–84; RESP 17–20; TEMP 36.7–36.9; O2SAT 90–100; BMI 22.6
[2024-05-19 01:40] LABS: Anion Gap 12.5 (5-19); Blood Urea Nitrogen 8 mg/dL (8-23); Calcium 8.1 mg/dL (8.5-10.5); Carbon Dioxide 28 mmol/L (22-29); Chloride 84 mmol/L (98-107); Glomerular Filtration Rate 161.2 mL/min (90-130); Glucose 101 mg/dL (65-115); Osmolality Calculated 250 mOsm/kg (285-295); Potassium 3.5 mmol/L (3.5-5.1); Sodium 121 mmol/L (136-145)
[2024-05-19 01:41] LABS: Creatinine Clr Calc Pharmacy 119.2363
[2024-05-19] MEDS: sodium chloride 0.9% 1,000 ML 75 ML IV (03:36)
[2024-05-19] MEDS: levothyroxine 50 mcg Tablet PO (05:55)
[2024-05-19] MEDS: ipratropium-albuterol 3 mL Neb INHALATION ×2 (06:15→07:53)
[2024-05-19 07:06] LABS: Magnesium 2.1 mg/dL (1.7-2.3); Phosphorus 2.8 mg/dL (2.5-4.5); Uric Acid 3.2 mg/dL (2.4-5.7)
[2024-05-19 07:08] LABS: Anion Gap 13.5 (5-19); Blood Urea Nitrogen 6 mg/dL (8-23); Carbon Dioxide 27 mmol/L (22-29); Chloride 87 mmol/L (98-107); Creatinine Clr Calc Pharmacy 119.2363; Glomerular Filtration Rate 161.2 mL/min (90-130); Glucose 100 mg/dL (65-115); Osmolality Calculated 256 mOsm/kg (285-295); Potassium 3.5 mmol/L (3.5-5.1); Sodium 124 mmol/L (136-145)
[2024-05-19 07:47] LABS: Estmated Average Glucose 103; Hemoglobin A1C 5.2 % (4.0-6.0)
[2024-05-19] MEDS: budesonide 0.5 mg/2 mL Neb INHALATION (07:53)
--- NOTE | 2024-05-19 09:04 | P.PN_ITS ---
Subjective 2 Subjective: no new complaints Medications: Reviewed: Yes Vitals/I&O/Wt Last Vital Signs Temp 98.1 F 05/19/24 08:00 Pulse 68 05/19/24 08:03 Resp 17 05/19/24 07:47 BP 128/68 05/19/24 06:00 Pulse Ox 97 05/19/24 07:47 O2 Del Method Nasal Cannula 05/19/24 07:47 O2 Flow Rate 2 05/19/24 07:47 05/18/24 05/19/24 05/19/24 22:59 06:59 14:59 Intake Total 243.883 / 5002.538 4319.75 / 2452.633 Output Total 1999 700 / 2700 Balance -1756.117 / -756.117 508.75 / -247.367 Weight last 48 hrs Weight 56.019 kg Weight 56.019 kg Weight 56.019 kg Weight 52.163 kg Physical Exam 2 Narrative: Awake, alert, HEENT, no distress, S1-S2 regular rate and rhythm per report Lungs clear per report No pedal edema Data 05/18/24 11:46 05/19/24 14:44 A&P Assessment and plan (1) Hyponatremia: 1. Hyponatremia: Hypoosmolar and hypovolemic. Multifactorial due to recent HCTZ initiation and poor p.o. intake. Noted low urine sodium and chloride, urine osmolality pending. -s/p IV fluids-normal saline at 75 cc an hour - off now -Na increased from 112 to 124 , ivf stopped , ordered desmopressin -Check TSH and cortisol levels -Monitor closely. 2. Hypertension: Stopped HCTZ , losartan on hold in the setting of orthostatic hypotension, blood pressure controlled currently 3. Hypokalemia: Replete potassium 4. History of COPD Patient evaluated using audiovisual cart. Time spent 40 minutes. Attestations 2 Medical Necessity Statement*: per roby Coding Level of Care Code Acute Code for [facility] Fwd Diagnoses Hyponatremia E87.1
[2024-05-19] MEDS: magnesium oxide 400 mg tablet PO ×2 (10:15→18:08)
[2024-05-19] MEDS: desmopressin 4 mcg/mL INJ 2 MCG IV (10:15)
[2024-05-19] MEDS: pantoprazole DR 40 mg Tablet PO (10:15)
[2024-05-19 12:31] LABS: Sodium 123 mmol/L (136-145)
--- NOTE | 2024-05-19 14:33 | PC.NURSE ---
Transfer Note Patient transferred to med-surg room 278-1 from ICU via wheelchair. Patient oriented to environment and equipment. Covering service notified. Orders reviewed and will continue to monitor. Upon transfer patient is alert/oriented x4 on 2LNC. 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
[2024-05-19 15:09] LABS: Sodium 120 mmol/L (136-145)
[2024-05-19] MEDS: enoxaparin 30 mg/0.3 mL Syringe SUBCUT (16:43)
--- NOTE | 2024-05-19 17:51 | P.PN_ITS ---
Subjective 2 Subjective: Patient was seen this morning, she is alert oriented x 3, following all commands, denies any headache, no blurry vision no focal weakness, we discussed her improved serum sodiums, will continue to monitor as inpatient continue to hold hydrochlorothiazide, losartan, due to the rapid correction, I have held off of IV fluids, will get nephrology consultation, monitor serum sodiums, consider further fluid replacement based on clinical progress, Vitals/I&O/Wt Last Vital Signs Temp 98.1 F 05/19/24 16:00 Pulse 71 05/19/24 16:00 Resp 17 05/19/24 16:00 BP 146/71 05/19/24 16:00 Pulse Ox 95 05/19/24 16:00 O2 Del Method Nasal Cannula 05/19/24 07:47 O2 Flow Rate 2 05/19/24 07:47 05/19/24 05/19/24 05/19/24 06:59 14:59 22:59 Intake Total 1208.75 / 2452.633 1455 / 1455 Output Total 700 / 2700 1000 / 1000 Balance 508.75 / -247.367 455 / 455 Weight last 48 hrs Weight 56.019 kg Weight 56.019 kg Weight 56.019 kg Weight 52.163 kg Physical Exam 2 Const: COMMON NORMALS: no acute distress and patient oriented x3 Resp: COMMON NORMALS: normal respiratory effort, No retractions, No use of accessory muscles and clear to auscultation bilaterally AUSCULTATION: clear to auscultation bilaterally Cardio: COMMON NORMALS: regular rate, regular rhythm, S1 normal heart sound present and S2 normal heart sound present RATE: regular rate RHYTHM: r egular rhythm HEART SOUNDS: S1 normal heart sound present and S2 normal heart sound present GI: COMMON NORMALS: Normal to inspection, nondistended, normoactive bowel sounds present and non-tender Extremity: COMMON NORMALS: no pedal edema Neuro: COMMON NORMALS: patient oriented x3 Psych: COMMON NORMALS: mental status grossly normal Data 05/18/24 11:46 05/19/24 14:44 A&P Assessment and plan (1) Hyponatremia: Critical hyponatremia with sodium 108-109 today. Has associated hypo- osmolarity, hypochloremia. Some degree of volume loss from increased urine output along with report of maybe 4 episodes of small volume vomiting since Friday. No diarrhea. Primary factor is addition of hydrochlorothiazide for antihypertensive management to her medication regimen on May 10. Prior to starting that medication sodium was 132. She has baseline low sodium levels going back as far as 2021 so expect that she has a degree of chronic SIADH in addition to adverse effect of hydrochlorothiazide. Primary symptoms are weakness and dizziness along with muscle cramping and general fatigue. -Due to rapid correction hold off on further IV fluids # Monitor serum sodiums every 6 hours # Nephrology consulted # Will receive desmopressin, salt tablets (2) Adverse effect of hydrochlorothiazide: Initial encounter, as described above. (3) Hypomagnesemia: Contributing factor to presentation (4) Hypokalemia: Contributing factor to presentation (5) Hypertension: Primary hypertension, has been managed on Losartan, but over time blood pressures have not been optimally controlled despite compliance with medication. She was initially trialed with amlodipine but that increased lower extremity edema which is a chronic problem for her. HCTZ was added on May 06 for blood pressure management with adverse reaction of severe hyponatremia as described here. She does have furosemide on her home medication list but it was prescribed for lower extremity edema which has been significant at times. (6) COPD (chronic obstructive pulmonary disease): Chronic, mixed panlobular emphysema, not acutely exacerbated presently. Some increase in shortness of breath related to severe electrolyte abnormalities. Always wheezes to some degree. Managed with Trelegy and as needed albuterol. On chronic oxygen at 2 L by nasal cannula which she wears with sleep and when she is walking around. Has acrocyanosis. PFTs in March of this year showed severe obstructive defect with limited response to bronchodilators and decreased diffusion capacity. (7) Hypothyroidism: Acquired hypothyroidism on levothyroxine replacement. TSH today in an acute setting is slightly above normal range but with normal free T3 and free T4. (8) Right upper lobe pulmonary nodule: Along with RLL findings. Worked up at [facility] in 2021 with bronchoscopy, bronchoalveolar lavage, biopsy. No specimens revealed any malignant cells. Had a PET scan in March of this year which showed no radiotracer avid malignancy. The right upper lobe nodular density was less prominent. A nodular density in the right lower lobe was similar in size to December 2018 as was a prominent precarinal lymph node. No recent changes in weight or reports of hemoptysis. (9) Lower extremity edema: Monitor (10) Smoker: 40+ pack year history, working on trying to quit all the time , currently smoking pack per day Plan VTE prophylaxis: Lovenox, 30 mg every 24 hours given body weight GI Prophylaxis: PPI Antibiotics: none presently Pending studies: Urinalysis, urine electrolytes, uric acid, echocardiogram and serial sodium levels Telemetry: Currently ordered secondary to electrolyte abnormalities Valenzuela: not currently indicated though we are monitoring strict I's and O's Line(s): peripheral IVs Disposition plan: Home with outpatient follow up to primary care provider with follow-up electrolytes/BMP check after discharge. I did personally speak with Dr. Patricia and she is aware and in agreement with this plan. Patient goes to [facility] for her primary care Code Status: Full Code Supportive care otherwise Findings, concerns and plans were discussed with patient and she was given an opportunity to ask questions Plan for today, moved to [facility], monitor serum sodiums every 6 hours, salt tablets, desmopressin, hold off on IV fluids, nephrology consultation Attestations 2 Medical Necessity Statement*: Patient requires hospitalization today due to hyponatremia Diagnoses Hyponatremia E87.1 Adverse effect of hydrochlorothiazide T50.2X5A Hypomagnesemia E83.42 Hypokalemia E87.6 Hypertension I10 COPD (chronic obstructive pulmonary disease) J44.9 Hypothyroidism E03.9 Right upper lobe pulmonary nodule R91.1 Lower extremity edema R60.0 Smoker F17.200
[2024-05-19] MEDS: sodium chloride 1 gm Tablet PO (18:08)
--- NOTE | 2024-05-19 18:15 | PC.NURSE ---
Called Dr. Mcelroy on the phone while still in the room with patient and her son. Dr. Mcelroy stated to patient Your sodium level is still really low and you could if you go home. Your brain could swell and you could end up on a ventilator. It would be better for you to stay here and take the salt tablets and limit your fluid intake to build your sodium back up. Patient states, I know my risks and I want to go home. AMA paper signed by patient.
--- NOTE | 2024-05-19 18:18 | PC.NURSE ---
Patient notified this nurse that she wants to leave AMA. Patient son at bedside who states he is her caregiver.
--- NOTE | 2024-05-19 18:25 | PC.NURSE ---
Patient is A&Ox4. Respirations even and non-labored on room air. Patient placed herself in a wheel chair and her son pushed her to a private car.
--- NOTE | 2024-05-19 18:30 | PC.NURSE ---
Dr. Mcelroy up here to see patient and patient has already left the building at 1825. Dr. Mcelroy requests that I call the patient and asked her not to take her Losartan and Hydrochlorothiazide until she follows up with her doctor. Dr. Mcelroy also said he will call her in salt tabs to [facility] tomorrow morning. 1831 Carol called and updated the informations about the medications. Carol states, I will keep my sodium level checked at my doctor's office.
--- NOTE | 2024-05-20 12:39 | PM.DCS ---
Discharge Providers Date of Admission: 05/18/24 13:43 Date of Discharge: May 20, 2024 Attending Provider at Admission: Sarita Buagh MD Attending Provider at Discharge: Sarita Baugh MD Primary Care Provider: Naida Patricia DO Diagnoses at Discharge Discharge Diagnosis (1) Hyponatremia: Status: Acute Reason for Visit Reason for Visit: Near Syncope Hospital Course Hospital Course Patient left AGAINST MEDICAL ADVICE Carol Garcia is a 63 year old female who presented to the emergency room with chief complaint of weakness. Symptoms began Friday morning. When she got up she noted that she was a bit unsteady and dizzy. That continued throughout the day. She has had a couple of episodes of some nausea and 4 episodes of vomiting since Friday. No diarrhea. Vomiting was spontaneous, small amounts of something that she had recently consumed. Weakness is generalized rather than focal. Today she almost passed out but her son who lives with her was near her and kept her from falling. No other episodes quite as bad. It was because of this episode that she came in for evaluation. History is obtained from her. She knew something was not right. Her breathing may have been a little bit worse but nothing significant. She has known COPD. She has had a mild cough, productive but no blood noted. No reports of any fevers. Quite tired recently. She has been more thirsty lately as well and urinating more but no dysuria or hematuria. It should be noted that she started hydrochlorothiazide on May 10 or . This was started by her primary care provider, Dr. Patricia, for hypertension that was not optimally managed. She takes losartan chronically and had been on Lasix as needed for lower extremity edema. Has not taken any Lasix since she started the hydrochlorothiazide. She had tried amlodipine in the past with result of lower extremity edema worsening. She does have a history of hypothyroidism for which she is on levothyroxine. Has not had dose today but is compliant with medications. Workup in the emergency room revealed severely low sodium level at 108. This was repeated and found to be 109. Chloride was also quite low. She has had muscle cramps in her calves the last couple of days frequently. No seizures or abnormal movements reported. No significant mental status change. She has been able to provide her own history. Given the severity of her hyponatremia she is being admitted for further management and evaluation. IV fluids were started in the emergency room. I was able to speak with Mrs. Garcia's primary care provider, Dr. Patricia and able to obtain lab results drawn prior to initiation of HCTZ this month as noted. Patient was admitted to [facility] for acute hyponatremia, likely multifactorial, from volume loss, hydrochlorothiazide, losartan, she was monitored in the ICU received IV fluids, losartan, hydrochlorothiazide, Lasix were held, and she was monitored, her serum sodiums improved into the mid 120s, she was alert oriented x 3, following all commands mentation improved relatively asymptomatic, she was moved to the medical floors on 05/19/2024. Due to her serum sodiums dropping to 120 she was given a dose of desmopressin and started on salt tablets in conjunction with nephrology. The evening of 05/19/2024, patient wanted to leave the hospital as she said to nursing staff that she felt well, I conveyed to nursing staff to let patient know the morbidity and mortality associated with leaving the hospital AGAINST MEDICAL ADVICE, morbidity and mortality associated with hyponatremia, risk including but not limited to brain swelling, osmotic demyelination syndrome, high risk of permanent neurologic damage, however patient was adamant about leaving AGAINST MEDICAL ADVICE, she left AGAINST MEDICAL ADVICE. I called patient the morning of 05/20/2024, to check up on her, she is alert oriented x 3, she is able to talk to me over the phone denied any headache, no blurry vision, no nausea, no vomiting, I again had a discussion with her about the morbidity and mortality associated with hyponatremia, issues with rapid fluctuations of sodium can cause permanent neurologic damage, osmotic diarrhea demyelination syndrome, cerebral edema morbidity and mortality associated, risk of ICU admission, intubation, serious harm. However patient is adamant about not coming back to the hospital, she understands morbidity mortality associated with her condition, she voiced understanding, all questions answered, she tells me that she feels okay, I confirmed with her to continue to hold hydrochlorothiazide/losartan/Lasix. I have sent salt tablets to her pharmacy, I have conveyed the importance of her to recheck her sodium levels through either her primary care provider today or come to the emergency room today to recheck her sodium levels. I advised that if she were to have any headache, blurry vision, nausea, vomiting changes in her mentation she should immediately call 911, she voiced understanding, all questions answered. Discharge Data Studies Completed and Pending Completed Studies During Hospitalization Category Date Time Status CT head wo con* [id number] Stat Cat Scan 05/18/24 11:42 Completed XR chest 1V portable [id number] Stat Exams 05/18/24 11:42 Completed CV. echo complete* [id number] Routine Ultrasound 05/18/24 16:23 Completed Radiology Impressions Chest X-Ray 05/18/24 11:42 IMPRESSION: 1. Scarring right lung 2. Interval decrease in size of previously noted right midlung zone nodule 3. Hyperinflation consistent COPD 4. No acute infiltrates Head CT 05/18/24 11:42 IMPRESSION: 1. No acute intracranial hemorrhage or edema. 2. Prior RIGHT denton radiata lacunar infarct. 3. Mild atrophy and small vessel ischemic disease. Laboratory Results WBC 6.59 10^3/uL (3.29-11.43) 05/18/24 11:46 RBC 4.83 10^6/uL (3.85-5.65) 05/18/24 11:46 Hgb 15.40 g/dL (11.27-16.99) 05/18/24 11:46 Hct 41.3 % (36-47) 05/18/24 11:46 MCV 85.5 fl (85-98) 05/18/24 11:46 MCH 31.9 pg (27-33) 05/18/24 11:46 MCHC 37.3 g/dL (30-55) 05/18/24 11:46 RDW 12.1 % (12.1-15.1) 05/18/24 11:46 Plt Count 239 10^3/cmm (157-399) 05/18/24 11:46 MPV 9.7 fL (7.4-10.4) 05/18/24 11:46 Neut % (Auto) 76.5 % 05/18/24 11:46 Lymph % (Auto) 9.1 % 05/18/24 11:46 [place] % (Auto) 12.1 % 05/18/24 11:46 Eos % (Auto) 1.5 % 05/18/24 11:46 Baso % (Auto) 0.2 % 05/18/24 11:46 Neut # (Auto) 5.04 10^3/uL (1.8-7.7) 05/18/24 11:46 Lymph # (Auto) 0.6 10^3/uL (0.8-4.8) L 05/18/24 11:46 [place] # (Auto) 0.8 10^3/uL (0.2-0.9) 05/18/24 11:46 Eos # (Auto) 0.1 10^3/uL (0.0-0.8) 05/18/24 11:46 Baso # (Auto) 0.0 10^3/uL (0.0-0.1) 05/18/24 11:46 Nucleated RBC % (auto) 0 % 05/18/24 11:46 Nucleated RBCs # 0.0 /100WBC 05/18/24 11:46 Sodium 120 mmol/L (136-145) L 05/19/24 14:44 Potassium 3.5 mmol/L (3.5-5.1) 05/19/24 06:10 Chloride 87 mmol/L (98-107) L 05/19/24 06:10 Carbon Dioxide 27 mmol/L (22-29) 05/19/24 06:10 Anion Gap 13.5 (5-19) 05/19/24 06:10 BUN 6 mg/dL (8-23) L 05/19/24 06:10 Creatinine 0.4 mg/dL (0.5-0.9) L 05/19/24 06:10 GFR Calculation 161.2 mL/min (90-130) H 05/19/24 06:10 Glucose 100 mg/dL (65-115) 05/19/24 06:10 POC Glucose 137 mg/dL (70-110) H 05/18/24 12:22 Estimat Average Glucose 103 05/19/24 06:10 Hemoglobin A1c 5.2 % (4.0-6.0) 05/19/24 06:10 Calculated Osmolality 256 mOsm/kg (285-295) L 05/19/24 06:10 Uric Acid 3.2 mg/dL (2.4-5.7) 05/19/24 06:10 Calcium 8.0 mg/dL (8.5-10.5) L 05/19/24 06:10 Phosphorus 2.8 mg/dL (2.5-4.5) 05/19/24 06:10 Magnesium 2.1 mg/dL (1.7-2.3) 05/19/24 06:10 Total Bilirubin 1.2 mg/dL (0.15-1.2) 05/18/24 11:46 AST 27 U/L (0-32) 05/18/24 11:46 ALT 18 U/L (0-33) 05/18/24 11:46 Alkaline Phosphatase 79 U/L (35-105) 05/18/24 11:46 Total Protein 7.2 g/dL (6.6-8.7) 05/18/24 11:46 Albumin 4.6 g/dL (3.5-5.2) 05/18/24 11:46 Globulin 2.6 g/dL (1.3-4.6) 05/18/24 11:46 TSH 4.48 uIU/mL (0.27-4.20) H 05/18/24 11:46 Free T4 1.57 ng/dL (0.82-1.77) 05/18/24 12:51 Free T3 2.4 PG/ML (2.0-4.4) 05/18/24 12:51 Urine Color Yellow (Yellow) 05/18/24 14:45 Urine Appearance Clear (CLEAR) 05/18/24 14:45 Urine pH 7 (5-7) 05/18/24 14:45 Ur Specific [place] 1.010 (1.005-1.030) 05/18/24 14:45 Urine Protein Neg (Negative) 05/18/24 14:45 Urine Glucose (UA) Norm (Normal) 05/18/24 14:45 Urine Ketones 1+ (Negative) H 05/18/24 14:45 Urine Blood Neg (Negative) 05/18/24 14:45 Urine Nitrate Negative (Negative) 05/18/24 14:45 Urine Bilirubin Neg (Negative) 05/18/24 14:45 Urine Urobilinogen Norm mg/dL (Negative) 05/18/24 14:45 Ur Leukocyte Esterase 1+ (Negative) H 05/18/24 14:45 Urine RBC None /hpf (0-2) 05/18/24 14:45 Urine WBC 0-4 /hpf (0-5) H 05/18/24 14:45 Ur Squamous Epith Cells 0-4 /hpf (0-5) H 05/18/24 14:45 Amorphous Sediment Not Reportable 05/18/24 14:45 Urine Bacteria Trace /hpf (NONE) 05/18/24 14:45 Urine Mucus None /hpf 05/18/24 14:45 Ur Random Sodium 15 mmol/L 05/18/24 14:45 Ur Random Potassium 14 mmol/L 05/18/24 14:45 Ur Random Chloride 15 mmol/L 05/18/24 14:45 Ur Random Urea Nitrogn 86 mg/dL 05/18/24 14:45 Urine Creatinine 15 mg/dL (28-217) L 05/18/24 14:45 Vitals Last Vital Signs Temp 98.1 F 05/19/24 16:00 Pulse 71 05/19/24 16:00 Resp 17 05/19/24 16:00 BP 146/71 05/19/24 16:00 Pulse Ox 95 05/19/24 16:00 O2 Del Method Nasal Cannula 05/19/24 07:47 O2 Flow Rate 2 05/19/24 07:47 Discharge Plan Discharge Patient Disposition: Left Against Medical Advice Condition: Stable Prescriptions: New sodium chloride 1,000 mg tablet,soluble 500 mg PO BID 5 Days Qty: 5 0RF Continued Trelegy Ellipta 100-62.5-25 mcg blister with device 1 inh inhalation DAILY levothyroxine 50 mcg capsule 50 mcg PO DAILY albuterol sulfate 90 mcg/actuation HFA aerosol inhaler 2 puff inhalation Q6H PRN (Reason: Shortness Of Breath) albuterol sulfate 2.5 mg /3 mL (0.083 %) solution for nebulization 2.5 mg inhalation QID PRN (Reason: Shortness Of Breath Or Wheezing) Discontinued furosemide 40 mg tablet 40 mg PO DAILY PRN (Reason: lower extremity edema) hydrochlorothiazide 25 mg tablet 25 mg PO DAILY losartan 100 mg tablet 100 mg PO DAILY Other Ambulatory Orders: Basic Metabolic Panel (Routine) Timeframe: 1 Week Facility: [facility] - Location: Lab - Main Lab Ordered By: Sarita Baugh Magnesium (Routine) Timeframe: 1 Week Facility: [facility] - Location: Lab - Main Lab Ordered By: Sarita Baugh Referrals: Naida Patricia DO [Primary Care Provider] - 4-7 days Discharge Diet: Regular Discharge Activity: Resume usual activity Discharge Attestations Time Spent in Discharge Care*: greater than 30 min Quality Metrics Clinical Quality Measures [ No reported AMI, CVA or VTE this stay] Coding Level of Care Code 72586 Total time (in minutes) for Discharge: 45 Diagnoses Hyponatremia E87.1
--- NOTE | 2024-05-24 11:31 | PC.NURSE ---
I received a message from Veronika with Dr. Patricia's office on 05/21 regarding Sodium Chloride tabs, however when I attempted to call back there was no response. I called again this morning and spoke with Veronika. She states that they spoke with patient on 05/21 and had instructed her to take her Sodium Chloride tablets, however patient stated she didn't have any. I called and spoke with Will on behalf of [facility] pharmacy and he stated they had not received the order. I provided a verbal order for Sodium Chloride 1000 mg 1/2 tablet PO BID for 5 days, as written in d/c summary by Dr. Mcelroy. I called back to Veronika with Dr. Patricia's office and informed her of this as they were seeing patient today and she was going to inform patient of Rx being at [facility], however there was no response at clinic. I called patient and informed her of the medication being available at [facility] for pick. She verbalizes understanding.
== END 2024-05-19 18:25 | disposition left against medical advice (07) | DRG 641 ==
LOC: ER 13:41 → ICU 13:43 → MEDSURG 05-19 14:12
PROVIDERS: Family Medicine; Admitting Provider Hospitalist; Emergency Provider Emergency Medicine; PCP Family Medicine; Visit Provider Hospitalist
DX: E87.1 Hypo-osmolality and hyponatremia (principal); E83.42 Hypomagnesemia; E87.6 Hypokalemia; I95.1 Orthostatic hypotension; R60.0 Localized edema; R91.1 Solitary pulmonary nodule; E03.9 Hypothyroidism, unspecified; I10 Essential (primary) hypertension; F17.210 Nicotine dependence, cigarettes, uncomplicated; J43.1 Panlobular emphysema; T50.2X5A Adverse effect of carbonic-anhydrase inhibitors, benzothiadiazides and other diuretics, initial encounter; Z53.29 Procedure and treatment not carried out because of patient's decision for other reasons
CPT/HCPCS: 36415; 36416; 70450; 71045; 80048; 80053; 81001; 82436; 82570; 82962; 83036; 83735; 84100; 84133; 84295; 84300; 84439; 84443; 84481; 84540; 84550; 85025; 93005; 93306; 94640; 96372; 99285; J0696; J1650; J2597; J3475; J3480; J7030; J7626; Q3014

== ENCOUNTER 2024-05-20 19:01 | Emergency (ER) | payer MEDICARE, MEDICAID, SELFPAY ==
[2024-05-20 19:22] VITALS: BP 135/68; PULSE 78; RESP 15; TEMP 36.6; O2SAT 97
--- NOTE | 2024-05-20 19:53 | W.ED.RECABL ---
HPI - Recheck/Abnormal Lab/Rx General: Chief Complaint: Recheck/Abnormal Lab/Rx Stated Complaint: General Medical Time Seen by Provider: 05/20/24 19:11 History of Present Illness: Patient had been admitted to the hospital recently with hyponatremia. Thought to be related to her diuretic. She had left AMA. Apparently she had labs checked yesterday but wanted them rechecked again today. Sodium yesterday was up from 112 to 120. She says she is asymptomatic. Review of Systems Narrative: Constitutional symptoms: Negative except as documented in HPI. Skin symptoms: Negative except as documented in HPI. Eye symptoms: Negative except as documented in HPI. ENMT symptoms: Negative except as documented in HPI. Respiratory symptoms: Negative except as documented in HPI. Cardiovascular symptoms: Negative except as documented in HPI. Gastrointestinal symptoms: Negative except as documented in HPI. Genitourinary symptoms: Negative except as documented in HPI. Musculoskeletal symptoms: Negative except as documented in HPI. Neurologic symptoms: Negative except as documented in HPI. Psychiatric symptoms: Negative except as documented in HPI. Endocrine symptoms: Negative except as documented in HPI. PFS ED PFSH: Medical History (Updated 05/20/24 @ 20:31 by Cally Kan MD) Lower extremity edema Hypertension Hypothyroidism History of echocardiogram 09/21 at [facility] EF 55-60%, normal B atria, mild TR, mild sclerosis AV Left rib fracture 6th rib, seen on CT imaging 2021 History of PFTs 03/2024 severe airflow obstruction, no significant response to bronchodilator, moderately reduced diffusion capacity Right upper lobe pulmonary nodule PET scan done 03/2024 with results under imaging in [facility] COPD (chronic obstructive pulmonary disease) Surgical History (Updated 05/18/24 @ 14:00 by Sarita Baugh MD) History of thoracentesis 09/21 [facility] right effusion, no malignant cells seen Hx of tonsillectomy H/O: hysterectomy History of bronchoscopy 09/21 [facility] History of lung biopsy At [facility] 09/21 RLL nodule, pathology showed benign bronchial was and alveolar tissue focally with features of organizing pneumonia. BAL right lung also done with no malignant cells, no fungi or pneumocystis identified Family History Mother Thyroid disease Father Heart disease Hypertension Son Thyroid disease Daughter Thyroid disease Brother Hypertension Social History Smoking and tobacco/nicotine status: current every day tobacco/nicotine user cigarettes Packs smoked per day: 1 Years cigarettes smoked: 42 [ Other cigarette details: Smoking 42 years in 2023.] Physical Exam Narrative: EXAM NARRATIVE: General: Alert, no acute distress. Skin: Warm, dry. Head: Normocephalic, atraumatic. Neck: Supple, trachea midline. Eye: Extraocular movements are intact. Ears, nose, mouth and throat: mucosa moist. Cardiovascular: Regular, Normal peripheral perfusion. Respiratory: Lungs are clear to auscultation, respirations are non-labored, breath sounds are equal, Symmetrical chest wall expansion. Gastrointestinal: Soft, Nontender, Non distended, Normal bowel sounds. Musculoskeletal: Normal ROM, no deformity. Neurological: Alert and oriented, No focal neurological deficit observed. Psychiatric: Cooperative, appropriate mood & affect. Course Vital Signs: Vital signs: Vital Signs Temperature 97.8 F 05/20/24 19:22 Pulse Rate 78 05/20/24 19:22 Respiratory Rate 15 05/20/24 19:22 Blood Pressure 135/68 05/20/24 19:22 Pulse Oximetry 97 05/20/24 19:22 Oxygen Delivery Me thod Room Air 05/20/24 19:22 MDM - Recheck/Abnormal Lab/Rx Medical Decision Making Medical decision making: Differential diagnosis including but not limited to and based on the above HPI, review of systems and physical exam: Repeating lab work at patient request. She is asymptomatic. Orders placed to evaluate differential diagnosis based on the above differential, HPI and physical exam Lab Review: Laboratory results were reviewed and interpreted by myself the emergency room physician. White count is 3.7. Platelets are 149. Sodium is up to 122 today. I reviewed the patient's medical record. Reexamination: Patient remained stable. No increased work of breathing. No altered mental status. No focal motor deficits. Assessment and plan: Hyponatremia -Patient is asymptomatic and sodium is improving with holding of her diuretic - Discharged home - Discussed plan with patient. Answered any questions. - Evaluation and treatment of this problem were appropriate in the emergency setting. Lab Data 05/20/24 19:56 05/20/24 19:56 Laboratory Results WBC 3.74 10^3/uL (3.29-11.43) 05/20/24 19:56 RBC 4.02 10^6/uL (3.85-5.65) 05/20/24 19:56 Hgb 12.90 g/dL (11.27-16.99) 05/20/24 19:56 Hct 35.8 % (36-47) L 05/20/24 19:56 MCV 89.1 fl (85-98) 05/20/24 19:56 MCH 32.1 pg (27-33) 05/20/24 19:56 MCHC 36.0 g/dL (30-55) 05/20/24 19:56 RDW 12.5 % (12.1-15.1) 05/20/24 19:56 Plt Count 149 10^3/cmm (157-399) L 05/20/24 19:56 MPV 9.2 fL (7.4-10.4) 05/20/24 19:56 Neut % (Auto) 78.4 % 05/20/24 19:56 Lymph % (Auto) 8.0 % 05/20/24 19:56 [place] % (Auto) 11.5 % 05/20/24 19:56 Eos % (Auto) 1.3 % 05/20/24 19:56 Baso % (Auto) 0.5 % 05/20/24 19:56 Neut # (Auto) 2.93 10^3/uL (1.8-7.7) 05/20/24 19:56 Lymph # (Auto) 0.3 10^3/uL (0.8-4.8) L 05/20/24 19:56 [place] # (Auto) 0.4 10^3/uL (0.2-0.9) 05/20/24 19:56 Eos # (Auto) 0.1 10^3/uL (0.0-0.8) 05/20/24 19:56 Baso # (Auto) 0.0 10^3/uL (0.0-0.1) 05/20/24 19:56 Nucleated RBC % (auto) 0 % 05/20/24 19:56 Nucleated RBCs # 0.0 /100WBC 05/20/24 19:56 Sodium 122 mmol/L (136-145) L 05/20/24 19:56 Potassium 3.1 mmol/L (3.5-5.1) L 05/20/24 19:56 Chloride 83 mmol/L (98-107) L 05/20/24 19:56 Carbon Dioxide 28 mmol/L (22-29) 05/20/24 19:56 Anion Gap 14.1 (5-19) 05/20/24 19:56 BUN 6 mg/dL (8-23) L 05/20/24 19:56 Creatinine 0.5 mg/dL (0.5-0.9) 05/20/24 19:56 GFR Calculation 124.6 mL/min (90-130) 05/20/24 19:56 Glucose 157 mg/dL (65-115) H 05/20/24 19:56 Calculated Osmolality 255 mOsm/kg (285-295) L 05/20/24 19:56 Calcium 8.9 mg/dL (8.5-10.5) 05/20/24 19:56 Total Bilirubin 0.4 mg/dL (0.15-1.2) 05/20/24 19:56 AST 24 U/L (0-32) 05/20/24 19:56 ALT 24 U/L (0-33) 05/20/24 19:56 Alkaline Phosphatase 60 U/L (35-105) 05/20/24 19:56 Total Protein 6.4 g/dL (6.6-8.7) L 05/20/24 19:56 Albumin 4.2 g/dL (3.5-5.2) 05/20/24 19:56 Globulin 2.2 g/dL (1.3-4.6) 05/20/24 19:56 No radiology studies performed this visit Discharge Plan Discharge Patient Disposition: Home Clinical Impression: Hyponatremia Condition: Stable Prescriptions: No Action [place] Ellipta 100-62.5-25 mcg blister with device 1 inh inhalation DAILY levothyroxine 50 mcg capsule 50 mcg PO DAILY furosemide 40 mg tablet 40 mg PO DAILY PRN (Reason: lower extremity edema) albuterol sulfate 90 mcg/actuation HFA aerosol inhaler 2 puff inhalation Q6H PRN (Reason: Shortness Of Breath) albuterol sulfate 2.5 mg /3 mL (0.083 %) solution for nebulization 2.5 mg inhalation QID PRN (Reason: Shortness Of Breath Or Wheezing) hydrochlorothiazide 25 mg tablet 25 mg PO DAILY losartan 100 mg tablet 100 mg PO DAILY Discharge Orders: Discharge ED (Routine); Ordered 05/20/24 Ordered By: Cally Kan Referrals: Naida Patricia DO [Primary Care Provider] - 1-3 days Discharge Diet: Usual diet Discharge Activity: Increase activity as tolerated Patient Instructions: Hyponatremia (ED) Activity Restrictions/Additional Instructions: Thank you for choosing [facility] for your healthcare needs today. Please realize this is an emergency room and that we are providing you with a medical screening exam and this may not be complete and all inclusive of all the testing and or work up that you may need to determine your ailment or severity of your illness. You have been screened and evaluated and felt safe for discharge. Health conditions do change or evolve sometimes and as such it is important that you follow up with your Primary Doctor to be re checked, 3-5 days is a general good time frame for follow up. You are always welcome to return to the ED for re assessment if your symptoms are worsening or you have new concerns Coding Level of Care Code ED Insecticide Sprayer for Jason Garrison
[2024-05-20 20:08] LABS: Basophils % 0.5 %; Eosinophils # 0.1 10^3/uL (0.0-0.8); Eosinophils % 1.3 %; Hematocrit 35.8 % (36-47); Lymphocytes # 0.3 10^3/uL (0.8-4.8); Mean Corpuscular Hemoglobin 32.1 pg (27-33); Mean Corpuscular Volume 89.1 fl (85-98); Mean Platelet Volume 9.2 fL (7.4-10.4); Monocytes # 0.4 10^3/uL (0.2-0.9); Monocytes % 11.5 %; Neutrophils # 2.93 10^3/uL (1.8-7.7); Neutrophils % 78.4 %; Nucleated Red Blood Cells % 0 %; Platelet Count 149 10^3/cmm (157-399); Red Blood Count 4.02 10^6/uL (3.85-5.65); Red Cell Distribution Width 12.5 % (12.1-15.1); White Blood Count 3.74 10^3/uL (3.29-11.43)
[2024-05-20 20:19] LABS: Alanine Aminotransferase 24 U/L (0-33); Albumin Level 4.2 g/dL (3.5-5.2); Alkaline Phosphatase 60 U/L (35-105); Anion Gap 14.1 (5-19); Aspartate Amino Transferase 24 U/L (0-32); Blood Urea Nitrogen 6 mg/dL (8-23); Calcium 8.9 mg/dL (8.5-10.5); Carbon Dioxide 28 mmol/L (22-29); Chloride 83 mmol/L (98-107); Creatinine Clr Calc Pharmacy 92.5848; Globulin 2.2 g/dL (1.3-4.6); Glomerular Filtration Rate 124.6 mL/min (90-130); Glucose 157 mg/dL (65-115); Osmolality Calculated 255 mOsm/kg (285-295); Potassium 3.1 mmol/L (3.5-5.1); Sodium 122 mmol/L (136-145); Total Bilirubin 0.4 mg/dL (0.15-1.2); Total Protein 6.4 g/dL (6.6-8.7)
== END 2024-05-20 20:50 | disposition home or self-care (01) ==
PROVIDERS: Emergency Provider Emergency Medicine; PCP Family Medicine
DX: E87.1 Hypo-osmolality and hyponatremia (principal); F17.210 Nicotine dependence, cigarettes, uncomplicated; I10 Essential (primary) hypertension; J44.9 Chronic obstructive pulmonary disease, unspecified
CPT/HCPCS: 36415; 80053; 85025; 99283

== ENCOUNTER 2024-09-18 22:16 | Emergency (ER) | payer MEDICAID, SELFPAY ==
[2024-09-18 22:19] VITALS: BP 172/91; PULSE 69; RESP 16; TEMP 36.3; O2SAT 99; BMI 21.5
[2024-09-19 00:58] VITALS: BP 148/72; PULSE 67; O2SAT 96
--- NOTE | 2024-09-19 01:08 | W.ED.FALL ---
HPI - Fall General: Chief Complaint: Fall Stated Complaint: fall head lac Time Seen by Provider: 09/19/24 00:00 History of Present Illness: This patient is a 64-year-old white female who fell at home after tripping in the kitchen and struck her head on a can. She sustained a scalp laceration. No loss of consciousness. She has some mild pain in the area of the laceration but no headache. She is not on any blood thinners. No other injuries. Related Data Home Medications Medication Instructions Recorded Confirmed albuterol sulfate 90 mcg/actuation 2 puff inhalation Q6H PRN 03/02/24 05/18/24 aerosol inhaler Shortness Of Breath fluticasone fur. 100 mcg-umeclid 1 inh inhalation DAILY 03/02/24 05/18/24 62.5 mcg-vilant 25 mcg inhalat.powder (Trelegy Ellipta) furosemide 40 mg tablet 40 mg PO DAILY PRN lower extremity 03/02/24 05/18/24 edema levothyroxine 50 mcg capsule 50 mcg PO DAILY 03/02/24 05/18/24 albuterol sulfate 2.5 mg/3 mL 2.5 mg inhalation QID PRN 05/18/24 05/18/24 (0.083 %) solution for nebulization Shortness Of Breath Or Wheezing hydrochlorothiazide 25 mg tablet 25 mg PO DAILY 05/18/24 05/18/24 losartan 100 mg tablet 100 mg PO DAILY 05/18/24 05/18/24 Allergies Allergy/AdvReac Type Severity Reaction Status Date / Time hydrochlorothiazide AdvReac Severe hyponatremi Verified 05/20/24 19:28 a Review of Systems General: Reports: 10 or more systems reviewed and unremarkable except in HPI and below Skin/Breast: Reports: other (3 cm occipital scalp laceration) [facility] ED PFSH: Medical History (Updated 09/19/24 @ 00:49 by Socrates Bustamante MD) Lower extremity edema Hypertension Hypothyroidism History of echocardiogram 09/21 at [facility] EF 55-60%, normal B atria, mild TR, mild sclerosis AV Left rib fracture 6th rib, seen on CT imaging 2021 History of PFTs 03/2024 severe airflow obstruction, no significant response to bronchodilator, moderately reduced diffusion capacity Right upper lobe pulmonary nodule PET scan done 03/2024 with results under imaging in Expanse COPD (chronic obstructive pulmonary disease) Surgical History (Updated 05/18/24 @ 14:00 by Sarita Baugh MD) History of thoracentesis 09/21 [facility] right effusion, no malignant cells seen Hx of tonsillectomy H/O: hysterectomy History of bronchoscopy 09/21 [facility] History of lung biopsy At [facility] 09/21 RLL nodule, pathology showed benign bronchial was and alveolar tissue focally with features of organizing pneumonia. BAL right lung also done with no malignant cells, no fungi or pneumocystis identified Family History Mother Thyroid disease Father Heart disease Hypertension Son Thyroid disease Daughter Thyroid disease Brother Hypertension Social History Smoking and tobacco/nicotine status: current every day tobacco/nicotine user cigarettes Packs smoked per day: 1 Years cigarettes smoked: 42 [ Other cigarette details: Smoking 42 years in 2023.] Physical Exam Const: COMMON NORMALS: no acute distress, patient oriented x3 and no limitations GENERAL APPEARANCE: cooperative and comfortable HENMT: COMMON NORMALS: Normal nasal mucous membranes and turbinates present, moist oral mucous membranes and oropharynx normal HEAD & SCALP: other (3 cm occipital scalp lac) FACE & SINUS: normal facial exam NOSE: Normal nasal mucous membranes and turbinates present Eye: COMMON NORMALS: Equal, round and reactive pupils present, EOMs intact bilaterally and conjunctivae normal GENERAL EYE: appearance normal, both eyes and all related structures CONJUNCTIVA: Yes conjunctivae normal PUPIL: Yes Equal, round and reactive pupils present Neck/C-Spine: COMMON NORMALS: supple and no JVD Chest: COMMONS NORMALS: normal inspection of the chest Resp: COMMON NORMALS: normal respiratory effort and clear to auscultation bilaterally AUSCULTATION: clear to auscultation bilaterally Cardio: COMMON NORMALS: no JVD, regular rate, regular rhythm, No gallops present (Cardio), No murmurs present (Cardio) and No rub (Cardio) RATE: regular rate RHYTHM: regular rhythm GI: COMMON NORMALS: Normal to inspection, nondistended, normoactive bowel sounds present, Soft to palpation and non-tender AUSCULTATION: Yes normoactive bowel sounds PALPATION: Yes Soft to palpation : COMMON NORMALS: Yes no CVA tenderness BLADDER/KIDNEY EXAM: Yes no CVA tenderness Back/Pelvis: COMMON NORMALS: no CVA tenderness and thoracic and lumbar spine normal to inspection Extremity: COMMON NORMALS: normal to inspection Neuro: COMMON NORMALS: patient oriented x3 and CN's II-XII intact bilaterally Psych: COMMON NORMALS: mental status grossly normal, Normal thought process present and cooperative THOUGHT PROCESS: Normal thought process present Skin: COMMON NORMALS: no rashes or lesions noted, turgor normal and no jaundice GENERAL SKIN EXAM: no rashes or lesions noted and turgor normal Procedures Laceration Laceration 1: Site: scalp Size (cm): 3 Skin layer closed with: other (0ne staple) Number of sutures: 1 Course Vital Signs: Vital signs: Vital Signs Temperature 97.4 F L 09/18/24 22:19 Pulse Rate 67 09/19/24 00:58 Respiratory Rate 16 09/18/24 22:19 Blood Pressure 148/72 09/19/24 00:58 Pulse Oximetry 96 09/19/24 00:58 Oxygen Delivery Me thod Room Air 09/18/24 22:19 MDM - Fall Medical Decision Making Patient was instructed to have the staple removed in 10 days. She was discharged in stable condition. No radiology studies performed this visit Discharge Plan Discharge Patient Disposition: Home Clinical Impression: Laceration of scalp Qualifiers: Encounter type: initial encounter Qualified Code(s): S01.01XA - Laceration without foreign body of scalp, initial encounter Condition: Stable Prescriptions: No Action Trelegy Ellipta 100-62.5-25 mcg blister with device 1 inh inhalation DAILY levothyroxine 50 mcg capsule 50 mcg PO DAILY furosemide 40 mg tablet 40 mg PO DAILY PRN (Reason: lower extremity edema) albuterol sulfate 90 mcg/actuation HFA aerosol inhaler 2 puff inhalation Q6H PRN (Reason: Shortness Of Breath) albuterol sulfate 2.5 mg /3 mL (0.083 %) solution for nebulization 2.5 mg inhalation QID PRN (Reason: Shortness Of Breath Or Wheezing) hydrochlorothiazide 25 mg tablet 25 mg PO DAILY losartan 100 mg tablet 100 mg PO DAILY Discharge Orders: Discharge ED (Routine); Ordered 09/19/24 Ordered By: Socrates Bustamante Referrals: Naida Patricia DO [Primary Care Provider] - Patient Instructions: Head Laceration (ED) Coding Level of Care Code ED Leather [employer]ener for Jason Garrison
== END 2024-09-19 00:59 | disposition home or self-care (01) ==
PROVIDERS: Emergency Provider Emergency Medicine; PCP Family Medicine
DX: S01.01XA Laceration without foreign body of scalp, initial encounter (principal); J44.9 Chronic obstructive pulmonary disease, unspecified; I10 Essential (primary) hypertension; W18.40XA Slipping, tripping and stumbling without falling, unspecified, initial encounter; F17.210 Nicotine dependence, cigarettes, uncomplicated
CPT/HCPCS: 12002; 99282

== ENCOUNTER 2024-11-10 13:43 | Outpatient (CLI) | payer MEDICAID, SELFPAY ==
--- NOTE | 2024-11-10 13:52 | XR_ITS ---
WS: [id number] Exam: XR chest 2V* [id number] Date/Time of Exam: 11/10/2024 2:13 PM Reason For Exam: ACUTE COUGH/INSPIRATORY WHEEZING Comparison 05/18/2024. Marked pulmonary hyperinflation most likely indicating obstructive lung disease. No consolidating inf iltrates or pneumothorax. Normal cardiomediastinal silhouette. The pulmonary arteries are prominent. Chronic plaque atelectasis in the lower RIGHT lung zone. No pleural effusion. Nonunion LEFT posterior sixth rib fracture. XR/XR chest 2V* [id number] IMPRESSION: 1. Marked pulmonary hyperinflation most likely indicating obstructive lung dise ase. No acute process is noted.
== END 2024-11-10 13:44 | disposition home or self-care (01) ==
LOC: RAD 13:46
PROVIDERS: PCP Family Medicine; Visit Provider Nurse Practitioner Family
DX: J98.4 Other disorders of lung (principal); R06.2 Wheezing; R05.1 Acute cough
CPT/HCPCS: 71046

== ENCOUNTER 2025-04-16 12:19 | Emergency (ER) | payer MEDICARE, MEDICAID, SELFPAY ==
[2025-04-16] VITALS (10 sets, daily range): BP systolic 144–181; BP diastolic 76–107; PULSE 67–71; RESP 17–18; TEMP 36.6; O2SAT 90–98; BMI 21.7
--- NOTE | 2025-04-16 12:44 | XRR_ITS ---
PROCEDURE INFORMATION: Exam: XR Right Hand Exam date and time: 04/16/2025 12:58 PM Age: 64 years old Clinical indication: Hand and wrist; Right; RT hand/wrist pain/swelling post fall; Limited rom TECHNIQUE: Imaging protocol: Radiologic exam of the right hand. Views: 3 or more views. COMPARISON: No relevant prior studies available. FINDINGS: Bones/joints: Normal. Soft tissues: Normal. XR/XR hand RT min 3V* [id number] IMPRESSION: No acute findings.
--- NOTE | 2025-04-16 12:44 | CTR_ITS ---
PROCEDURE INFORMATION: Exam: CT Head Without Contrast Exam date and time: 04/16/2025 1:10 PM Age: 64 years old Clinical indication: Injury or trauma; Fall; Blunt trauma (contusions or hematomas) TECHNIQUE: Imaging protocol: Computed tomography of the head without contrast. Radiation optimization: All CT scans at this facility use at least one of these dose optimization techniques: automated exposure control; mA and/or kV adjustment per patient size (includes targeted exams where dose is matched to clinical indication); or iterative reconstruction. COMPARISON: CT head wo con* [id number] 05/18/2024 12:02 PM RADIATION DOSE METRICS: Total DLP (mGy-cm): 1097.9 FINDINGS: Brain: No intracranial hemorrhage. No mass effect, edema or midline shift. There are vague areas of decreased attenuation within the periventricular white matter likely secondary to chronic microvascular changes. Cortical sulci are unremarkable for age. Cerebral ventricles: No ventriculomegaly. Paranasal sinuses: Visualized sinuses are unremarkable. No fluid levels. Mastoid air cells: Visualized mastoid air cells are well aerated. Bones/joints: Unremarkable. No acute fracture. Soft tissues: Unremarkable. CT/CT head wo con* [id number] IMPRESSION: No acute intracranial abnormality.
--- NOTE | 2025-04-16 12:44 | CTR_ITS ---
PROCEDURE INFORMATION: Exam: CT Cervical Spine Without Contrast Exam date and time: 04/16/2025 1:10 PM Age: 64 years old Clinical indication: Injury or trauma; Fall; Blunt trauma TECHNIQUE: Imaging protocol: Computed tomography of the cervical spine without contrast. Radiation optimization: All CT scans at this facility use at least one of these dose optimization techniques: automated exposure control; mA and/or kV adjustment per patient size (includes targeted exams where dose is matched to clinical indication); or iterative reconstruction. COMPARISON: PT PET skull to thigh SUBS [id number] 03/23/2024 10:22 AM RADIATION DOSE METRICS: Total DLP (mGy-cm): 148.7 FINDINGS: Bones: Mild lateral tilt of the cervical curvature convex to the patient's right that is likely longstanding and degenerative in nature. Asymmetric degenerative changes C5-C6 with lateral endplate osteophytic lipping and subchondral sclerosis resulting in narrowing of left neural foramina. Remaining disc levels are fairly well maintained. No significant spinal stenosis. No evidence of fracture, subluxation or traumatic spondylolisthesis. Lungs: Lung apices are normal. Soft tissues: Unremarkable. CT/CT cervical spin wo con* [id number] IMPRESSION: Degenerative changes C5-C6. No acute bony abnormalities.
[2025-04-16 13:28] LABS: Basophils % 0.5 %; Lymphocytes # 0.7 10^3/uL (0.8-4.8); Lymphocytes % 16.4 %; Mean Corpuscular HGB Conc 33.1 g/dL (30-55); Mean Corpuscular Hemoglobin 31.9 pg (27-33); Mean Corpuscular Volume 96.4 fl (85-98); Monocytes # 0.4 10^3/uL (0.2-0.9); Monocytes % 9.4 %; Nucleated Red Blood Cells % 0 %; Platelet Count 150 10^3/cmm (157-399); Red Blood Count 4.67 10^6/uL (3.85-5.65); White Blood Count 4.03 10^3/uL (3.29-11.43)
[2025-04-16 13:41] LABS: Bilirubin Urine Negative (Negative); Blood Urine Trace (Negative); Glucose Urine UA Negative (Normal); Ketones Urine Negative (Negative); Leukocyte Esterase Urine Negative (Negative); Nitrate Urine Negative (Negative); Protein Urine Negative (Negative); Specific Gravity, Urine 1.006 (1.005-1.030); Urine Appearance Clear (CLEAR); Urine Color Yellow (Yellow)
[2025-04-16 13:45] LABS: Lactic Sepsis W/Reflex 1.2 mmol/L (0.5-2.2)
[2025-04-16 13:46] LABS: Add Urine Microscopic? YES; Bacteria Urine None Seen /hpf; Hyaline Casts Urine 0-4 /lpf; RBC Urine 0-2 /hpf (0-2); Squamous Epithelial Cell Urine 0-5 /hpf (0-5); WBC Urine 0-5 /hpf (0-5)
[2025-04-16 13:46] LABS: Alanine Aminotransferase 13 U/L (0-33); Albumin Level 4.4 g/dL (3.5-5.2); Alkaline Phosphatase 65 U/L (35-105); Anion Gap 16.7 (5-19); Aspartate Amino Transferase 18 U/L (0-32); Blood Urea Nitrogen 14 mg/dL (8-23); Calcium 9.1 mg/dL (8.5-10.5); Carbon Dioxide 26 mmol/L (22-29); Chloride 90 mmol/L (98-107); Creatinine Clr Calc Pharmacy 88.9061; Globulin 2.4 g/dL (1.3-4.6); Glomerular Filtration Rate 124.2 mL/min (90-130); Glucose 127 mg/dL (65-115); Osmolality Calculated 268 mOsm/kg (285-295); Potassium 4.7 mmol/L (3.5-5.1); Sodium 128 mmol/L (136-145); Total Bilirubin 0.7 mg/dL (0.15-1.2); Total Protein 6.8 g/dL (6.6-8.7)
--- NOTE | 2025-04-16 14:01 | XRR_ITS ---
PROCEDURE INFORMATION: Exam: XR Pelvis Exam date and time: 04/16/2025 2:24 PM Age: 64 years old Clinical indication: Pelvic pain; Additional info: Buttocks/pelvis pain from fall. TECHNIQUE: Imaging protocol: Radiologic exam of the pelvis. Views: 1 or 2 view. COMPARISON: PT PET skull to thigh SUBS [id number] 03/23/2024 10:22 AM FINDINGS: Bones/joints: Unremarkable. No acute fracture. Soft tissues: Unremarkable. XR/XR pelvis 1-2V* [id number] IMPRESSION: No acute findings.
[2025-04-16] MEDS: morphine 4 mg/mL SDV 1 mL IVP (14:13)
--- NOTE | 2025-04-16 16:33 | ED_ITS ---
HPI - Extremity Problem 2 General: Chief complaint: Extremity Injury, Upper Stated complaint: right wrist pain s/p fall Time Seen by Provider: 04/16/25 12:44 Source: patient, family and EMS Mode of arrival: EMS Limitations: no limitations History of Present Illness: Patient reported she was bent over into the yard and then set up started to fall backwards and she threw her hands back to catch herself. Her left arm is multiple skin tears in her right wrist is in severe pain. On review she is also complaining of the low back/buttocks pain. R wrist arrived in splint with EMS reporting deformity. Related Data Home Medications ?Medication ?Instructions ?Recorded ?Confirmed albuterol sulfate 90 mcg/actuation 2 puff inhalation Q 6H PRN 03/02/24 05/18/24 aerosol inhaler Shortness Of Breath fluticasone fur. 100 mcg-umeclid 1 inh inhalation HEIDI Y 03/02/24 05/18/24 62.5 mcg-vilant 25 mcg inhalat.powder (Trelegy Ellipta) furosemide 40 mg tablet 40 mg PO DAILY PRN lower ext remity 03/02/24 05/18/24 edema levothyroxine 50 mcg capsule 50 mcg PO DAILY 03/02/24 05/18/24 albuterol sulfate 2.5 mg/3 mL 2.5 mg inhalation QID [place] N 05/18/24 05/18/24 (0.083 %) solution for nebulization Shortness Of Breat h Or Wheezing hydrochlorothiazide 25 mg tablet 25 mg PO DAILY 05/18/24 losartan 100 mg tablet 100 mg PO DAILY 05/18/24 Previous Rx's ?Medication ?Instructions ?Recorded hydrocodone 7.5 mg-acetaminophen 1 tab PO Q6H PRN pain 5 days #12 04/16/25 325 mg tablet tabs ondansetron 8 mg disintegrating 8 mg PO Q8H PRN nausea and 04/16/25 tablet vomiting 5 days #20 tabs Allergies Allergy/AdvReac Type Severity Reaction Status Date / Time hydrochlorothiazide AdvReac Severe hyponatremi Verified 05/20/24 19:28 a Review of Systems 2 General: Reports: 10 or more systems reviewed and unremarkable except in HPI and below PFSH ED 2 PFSH: Medical History (Updated 04/16/25 @ 17:01 by Terence Barbosa MD) Lower extremity edema Hypertension Hypothyroidism History of echocardiogram 09/21 at [facility] EF 55-60%, normal B atria, mild TR, mild sclerosis AV Left rib fracture 6th rib, seen on CT imaging 2021 History of PFTs 03/2024 severe airflow obstruction, no significant response to bronchodilator, moderately reduced diffusion capacity Right upper lobe pulmonary nodule PET scan done 03/2024 with results under imaging in Expanse COPD (chronic obstructive pulmonary disease) Surgical History (Updated 05/18/24 @ 14:00 by Sarita Baugh MD) History of thoracentesis 09/21 [facility] right effusion, no malignant cells seen Hx of tonsillectomy H/O: hysterectomy History of bronchoscopy 09/21 [facility] History of lung biopsy At [facility] 09/21 RLL nodule, pathology showed benign bronchial was and alveolar tissue focally with features of organizing pneumonia. BAL right lung also done with no malignant cells, no fungi or pneumocystis identified Family History Mother Thyroid disease Father Heart disease Hypertension Son Thyroid disease Daughter Thyroid disease Brother Hypertension Social History Smoking and tobacco/nicotine status: current every day tobacco/nicotine user cigarettes Packs smoked per day: 1 Years cigarettes smoked: 42 [ Other cigarette details: Smoking 42 years in 2023.] Physical Exam 2 Narrative: EXAM NARRATIVE: Thin appearing elderly female. Left arm with multiple skin tears. Right wrist with severe tenderness over the radial head no obvious deformity, some swelling. Neurovascular intact distal to site of pain and injury. Also has some low back/buttocks pain Const: COMMON NORMALS: no acute distress, patient oriented x3, healthy appearing, alert and well nourished GENERAL APPEARANCE: well kempt and well developed HENMT: COMMON NORMALS: normocephalic, atraumatic, external ears normal and moist oral mucous membranes HEAD & SCALP: normocephalic and atraumatic E XTERNAL EAR: Yes external ears normal Eye: COMMON NORMALS: Equal, round and reactive pupils present, EOMs intact bilaterally and conjunctivae normal CONJUNCTIVA: Yes conjunctivae normal P UPIL: Yes Equal, round and reactive pupils present Neck/C-Spine: COMMON NORMALS: full ROM, no lymphadenopathy and supple Chest: CHEST: Yes Symmetrical chest wall rise and No Surgical scars present (Chest) Resp: COMMON NORMALS: normal respiratory effort, No retractions, No use of accessory muscles and clear to auscultation bilaterally AUSCULTATION: clear to auscultation bilaterally Cardio: COMMON NORMALS: regular rate, regular rhythm, S1 normal heart sound present, S2 normal heart sound present, No gallops present (Cardio), No clicks present (Cardio), No murmurs present (Cardio) and No rub (Cardio) RATE: r egular rate RHYTHM: regular rhythm HEART SOUNDS: S1 normal heart sound present, S2 normal heart sound present and no murmurs PERIPHERAL PULSES: o ther (Radial pulses 2+ and symmetric) GI: COMMON NORMALS: Soft to palpation, non-tender and no masses INSPECTION: No abdominal distension PALPATION: Yes Soft to palpation, No Guarding due to palpation present (GI) and No Rebound tenderness present : COMMON NORMALS: Yes no CVA tenderness BLADDER/KIDNEY EXAM: Yes no CVA tenderness Back/Pelvis: COMMON NORMALS: no CVA tenderness Extremity: COMMON NORMALS: normal to inspection, full ROM, capillary refill normal and no clubbing, cyanosis or edema Neuro: COMMON NORMALS: patient oriented x3 SENSORIUM/ORIENTATION: Yes alert Psych: APPEARANCE: Yes well kempt Skin: COMMON NORMALS: no rashes or lesions noted, no wounds, turgor normal and no jaundice GENERAL SKIN EXAM: no rashes or lesions noted and turgor normal Course 2 Vital Signs: Vital signs: Vital Signs Temperature 97.8 F 04/16/25 12:20 Pulse Rate 71 04/16/25 15:30 Respiratory Rate 18 04/16/25 14:13 Blood Pressure 144/79 04/16/25 15:30 Pulse Oximetry 90 04/16/25 15:30 Oxygen Delivery Me thod Room Air 04/16/25 15:30 Oxygen Flow Rate 2 04/16/25 13:44 MDM - Extremity (Nontraumatic) Medical Decision Making Fall with no LOC. CT of the head and neck done no acute abnormality, x-ray of the pelvis done and no acute abnormality. On my read of the x-ray of the hand there is a buckle fracture of the distal radius on the right. Radiology reads as no acute finding. Will have patient follow-up with Ortho. I have placed her in a sugar-tong splint out of an abundance of precaution. Pain has been requiring narcotics. Patient be discharged on some pain medication as well. Medical Records I reviewed the patient's medical records. Lab Data I reviewed the patient's lab results. 04/16/25 13:01 04/16/25 13:01 Radiology Impressions Cervical Spine CT 04/16/25 12:44 IMPRESSION: Degenerative changes C5-C6. No acute bony abnormalities. Hand X-Ray 04/16/25 12:44 IMPRESSION: No acute findings. Head CT 04/16/25 12:44 IMPRESSION: No acute intracranial abnormality. Pelvis X-Ray 04/16/25 14:01 IMPRESSION: No acute findings. Laboratory Results WBC 4.03 10^3/uL (3.29-11.43) 04/16/25 13:01 RBC 4.67 10^6/uL (3.85-5.65) 04/16/25 13:01 Hgb 14.90 g/dL (11.27-16.99) 04/16/25 13:01 Hct 45.0 % (36-47) 04/16/25 13:01 MCV 96.4 fl (85-98) 04/16/25 13:01 MCH 31.9 pg (27-33) 04/16/25 13:01 MCHC 33.1 g/dL (30-55) 04/16/25 13:01 RDW 13.0 % (12.1-15.1) 04/16/25 13:01 Plt Count 150 10^3/cmm (157-399) L 04/16/25 13:01 MPV 10.0 fL (7.4-10.4) 04/16/25 13:01 Neut % (Auto) 72.0 % 04/16/25 13:01 Lymph % (Auto) 16.4 % 04/16/25 13:01 [place] % (Auto) 9.4 % 04/16/25 13:01 Eos % (Auto) 1.0 % 04/16/25 13:01 Baso % (Auto) 0.5 % 04/16/25 13:01 Neut # (Auto) 2.90 10^3/uL (1.8-7.7) 04/16/25 13:01 Lymph # (Auto) 0.7 10^3/uL (0.8-4.8) L 04/16/25 13:01 [place] # (Auto) 0.4 10^3/uL (0.2-0.9) 04/16/25 13:01 Eos # (Auto) 0.0 10^3/uL (0.0-0.8) 04/16/25 13:01 Baso # (Auto) 0.0 10^3/uL (0.0-0.1) 04/16/25 13:01 Nucleated RBC % (auto) 0 % 04/16/25 13:01 Nucleated RBCs # 0.0 /100WBC 04/16/25 13:01 Sodium 128 mmol/L (136-145) L 04/16/25 13:01 Potassium 4.7 mmol/L (3.5-5.1) 04/16/25 13:01 Chloride 90 mmol/L (98-107) L 04/16/25 13:01 Carbon Dioxide 26 mmol/L (22-29) 04/16/25 13:01 Anion Gap 16.7 (5-19) 04/16/25 13:01 BUN 14 mg/dL (8-23) 04/16/25 13:01 Creatinine 0.5 mg/dL (0.5-0.9) 04/16/25 13:01 GFR Calculation 124.2 mL/min (90-130) 04/16/25 13:01 Glucose 127 mg/dL (65-115) H 04/16/25 13:01 Calculated Osmolality 268 mOsm/kg (285-295) L 04/16/25 13:01 Lactic Acid 1.2 mmol/L (0.5-2.2) 04/16/25 13:01 Calcium 9.1 mg/dL (8.5-10.5) 04/16/25 13:01 Total Bilirubin 0.7 mg/dL (0.15-1.2) 04/16/25 13:01 AST 18 U/L (0-32) 04/16/25 13:01 ALT 13 U/L (0-33) 04/16/25 13:01 Alkaline Phosphatase 65 U/L (35-105) 04/16/25 13:01 Total Protein 6.8 g/dL (6.6-8.7) 04/16/25 13:01 Albumin 4.4 g/dL (3.5-5.2) 04/16/25 13:01 Globulin 2.4 g/dL (1.3-4.6) 04/16/25 13:01 Urine Color Yellow (Yellow) 04/16/25 13:33 Urine Appearance Clear (CLEAR) 04/16/25 13:33 Urine pH 7.0 (5-7) 04/16/25 13:33 Ur Specific [place] 1.006 (1.005-1.030) 04/16/25 13:33 Urine Protein Negative (Negative) 04/16/25 13:33 Urine Glucose (UA) Negative (Normal) 04/16/25 13:33 Urine Ketones Negative (Negative) 04/16/25 13:33 Urine Blood Trace (Negative) A 04/16/25 13:33 Urine Nitrate Negative (Negative) 04/16/25 13:33 Urine Bilirubin Negative (Negative) 04/16/25 13:33 Urine Urobilinogen 1.0 mg/dL (Negative) 04/16/25 13:33 Ur Leukocyte Esterase Negative (Negative) 04/16/25 13:33 Urine RBC 0-2 /hpf (0-2) 04/16/25 13:33 Urine WBC 0-5 /hpf (0-5) 04/16/25 13:33 Ur Squamous Epith Cells 0-5 /hpf (0-5) 04/16/25 13:33 Amorphous Sediment Not Reportable 04/16/25 13:33 Urine Bacteria None seen /hpf (NONE) 04/16/25 13:33 Hyaline Casts 0-4 /lpf H 04/16/25 13:33 All radiology interpretation(s) finalized by discharge Discharge Plan Discharge Patient Disposition: Home Clinical Impression: Buckle fracture of radius, Fall Condition: Stable Prescriptions: New hydrocodone-acetaminophen 7.5-325 mg tablet 1 tab PO Q6H PRN (Reason: pain) 5 Days Qty: 12 0RF ondansetron 8 mg tablet,disintegrating 8 mg PO Q8H PRN (Reason: nausea and vomiting) 5 Days Qty: 20 0RF No Action Trelegy Ellipta 100-62.5-25 mcg blister with device 1 inh inhalation DAILY levothyroxine 50 mcg capsule 50 mcg PO DAILY furosemide 40 mg tablet 40 mg PO DAILY PRN (Reason: lower extremity edema) albuterol sulfate 90 mcg/actuation HFA aerosol inhaler 2 puff inhalation Q6H PRN (Reason: Shortness Of Breath) albuterol sulfate 2.5 mg /3 mL (0.083 %) solution for nebulization 2.5 mg inhalation QID PRN (Reason: Shortness Of Breath Or Wheezing) hydrochlorothiazide 25 mg tablet 25 mg PO DAILY losartan 100 mg tablet 100 mg PO DAILY Discharge Orders: Discharge ED (Routine); Ordered 04/16/25 Ordered By: Terence Barbosa Referrals: Tanner White DO [Physician, Orthopedics] Clinical Impression: Buckle fracture of radius Naida Patricia DO [Primary Care Provider, IRRIGATION EQUIPMENT INSTALLER] Discharge Diet: Usual diet Discharge Activity: Limit activity as instructed Patient Instructions: Splint Care (ED), Buckle Fracture (ED), Opioid Safety Activity Restrictions/Additional Instructions: I prescribed you pain medication as well as nausea medicine in case the pain medication makes her nauseous. Please follow-up with Ortho in the next 7 to 10 days. Print Language: Mosotho Coding Level of Care Code ED Bagger Meat for Jason Garrison
== END 2025-04-16 17:28 | disposition home or self-care (01) ==
PROVIDERS: Emergency Provider Emergency Medicine; PCP Family Medicine
DX: S52.521A Torus fracture of lower end of right radius, initial encounter for closed fracture (principal); S61.512A Laceration without foreign body of left wrist, initial encounter; J44.9 Chronic obstructive pulmonary disease, unspecified; I10 Essential (primary) hypertension; E03.9 Hypothyroidism, unspecified; F17.210 Nicotine dependence, cigarettes, uncomplicated; W19.XXXA Unspecified fall, initial encounter; Y92.096 Garden or yard of other non-institutional residence as the place of occurrence of the external cause; Z79.899 Other long term (current) drug therapy; Z79.890 Hormone replacement therapy
CPT/HCPCS: 29125; 70450; 72125; 72170; 73130; 80053; 81001; 83605; 85025; 96374; 99284; J2270

== ENCOUNTER → 2025-04-21 08:08 | Outpatient (BNVA) | payer MEDICARE, MEDICAID, SELFPAY | PROVIDERS: PCP Family Medicine; Visit Provider Orthopaedic Surgery | DX: Z09 Encounter for follow-up examination after completed treatment for conditions other than malignant neoplasm (principal); S52.591A Other fractures of lower end of right radius, initial encounter for closed fracture; M25.531 Pain in right wrist; X58.XXXA Exposure to other specified factors, initial encounter | CPT/HCPCS: 73110; 99203 ==

== ENCOUNTER 2025-04-21 09:41 | Outpatient (CLI) | payer MEDICARE, MEDICAID, SELFPAY | END 2025-04-21 09:42 | disposition home or self-care (01) | LOC: SPT 09:44 | PROVIDERS: PCP Family Medicine; Visit Provider Orthopaedic Surgery | DX: Z46.89 Encounter for fitting and adjustment of other specified devices (principal); S52.591D Other fractures of lower end of right radius, subsequent encounter for closed fracture with routine healing; X58.XXXD Exposure to other specified factors, subsequent encounter | CPT/HCPCS: L3908 ==

== ENCOUNTER → 2025-05-12 13:42 | Outpatient (BNVA) | payer MEDICARE, MEDICAID, SELFPAY | PROVIDERS: PCP Family Medicine; Visit Provider Orthopaedic Surgery | DX: S52.591D Other fractures of lower end of right radius, subsequent encounter for closed fracture with routine healing (principal); X58.XXXD Exposure to other specified factors, subsequent encounter | CPT/HCPCS: 73110; 99213 ==

== ENCOUNTER → 2025-06-09 14:18 | Outpatient (BNVA) | payer MEDICARE, MEDICAID, SELFPAY | PROVIDERS: PCP Family Medicine; Visit Provider Orthopaedic Surgery | DX: S52.591A Other fractures of lower end of right radius, initial encounter for closed fracture (principal); X58.XXXA Exposure to other specified factors, initial encounter; M71.522 Other bursitis, not elsewhere classified, left elbow | CPT/HCPCS: 73110; 99214 ==

== ENCOUNTER 2025-06-14 14:31 | Outpatient (CLI) | payer MEDICARE, MEDICAID, SELFPAY ==
[2025-06-14 16:02] LABS: Hematocrit 39.6 % (36-47); Hemoglobin 13.50 g/dL (11.27-16.99); Mean Corpuscular HGB Conc 34.1 g/dL (30-55); Mean Corpuscular Hemoglobin 31.9 pg (27-33); Mean Corpuscular Volume 93.6 fl (85-98); Nucleated Red Blood Cells % 0 %; Platelet Count 174 10^3/cmm (157-399); Red Blood Count 4.23 10^6/uL (3.85-5.65); White Blood Count 3.51 10^3/uL (3.29-11.43)
[2025-06-14 16:09] LABS: Glucose Urine UA Negative (Normal); Nitrate Urine Negative (Negative); Specific Gravity, Urine 1.008 (1.005-1.030)
[2025-06-14 16:12] LABS: Add Urine Microscopic? YES
[2025-06-14 16:32] LABS: Alanine Aminotransferase 12 U/L (0-33); Albumin Level 4.5 g/dL (3.5-5.2); Alkaline Phosphatase 63 U/L (35-105); Anion Gap 16.7 (5-19); Aspartate Amino Transferase 15 U/L (0-32); Blood Urea Nitrogen 12 mg/dL (8-23); Calcium 9.2 mg/dL (8.5-10.5); Carbon Dioxide 26 mmol/L (22-29); Chloride 95 mmol/L (98-107); Globulin 2.1 g/dL (1.3-4.6); Glucose 103 mg/dL (65-115); Osmolality Calculated 276 mOsm/kg (285-295); Potassium 4.7 mmol/L (3.5-5.1); Sodium 133 mmol/L (136-145); Total Protein 6.6 g/dL (6.6-8.7)
== END 2025-06-14 14:32 | disposition home or self-care (01) ==
LOC: LAB 14:34
PROVIDERS: PCP Family Medicine; Visit Provider Orthopaedic Surgery
DX: S52.591A Other fractures of lower end of right radius, initial encounter for closed fracture (principal); X58.XXXA Exposure to other specified factors, initial encounter
CPT/HCPCS: 36415; 80053; 81001; 85025

== ENCOUNTER 2025-07-08 05:57 | Day surgery (SDC) | payer MEDICARE, MEDICAID, SELFPAY ==
[2025-07-08] VITALS (11 sets, daily range): BP systolic 122–162; BP diastolic 59–95; PULSE 63–81; RESP 12–24; TEMP 36.1–36.2; O2SAT 92–100; BMI 21.7
--- NOTE | 2025-07-08 06:19 | P.ANESASSM_ITS ---
Pre-Anesthetic Assessment Height/Weight: Height 5 ft 1 in Weight 115 lb Temp Pulse Resp BP Pulse Ox O2 Del Method 97.2 F L 81 18 160/91 95 Room Air 07/08/25 06:07 07/08/25 06:07 07/08/25 06:07 07/08/25 06:07 07/08/25 06:07 07/08/25 06:07 Preop Diagnosis: Left elbow bursitis Operation Date: 07/08/25 07:00 Proposed Procedures p Bursectomy Elbow Olecranon Bursa Excision(Left) - Tanner White, DO Was Beta Brenton taken within 24 hours: N/A Was Clonidine taken within 24 hours: N/A Last intake: Intake Last Liquid Date 07/07/25 Last Liquid Time 22:00 Last Solid Date 07/07/25 Last Solid Time 22:00 Anesthetic Plan ASA status: 3 Anesthesia: General Other: No prior issues with anesthesia NPO since yesterday evening History of hypertension on losartan COPD, current smoker Patient is on supplemental O2 at 2 L at night Labs reviewed from 06/14/2025 and acceptable for procedure Echo 2023 showing EF of 60% Plan for general anesthesia Medications/Allergies Home Medications ?Medication ?Instructions ?Recorded ?Confirmed ?Last Taken ?Type albuterol sulfate 90 mcg/actuation 2 puff inhalation Q 6H PRN 03/02/24 07/08/25 07/08/25 History aerosol inhaler Shortness Of Breath fluticasone fur. 100 mcg-umeclid 1 inh inhalation HEIDI Y 03/02/24 07/08/25 07/07/25 History 62.5 mcg-vilant 25 mcg inhalat.powder (Trelegy Ellipta) levothyroxine 50 mcg capsule 50 mcg PO DAILY 03/02/24 07/08/25 07/07/25 History albuterol sulfate 2.5 mg/3 mL 2.5 mg inhalation QID MA N 05/18/24 07/08/25 2 Weeks Ago History (0.083 %) solution for nebulization Shortness Of Breat h Or Wheezing ~06/24/25 losartan 100 mg tablet 100 mg PO DAILY 05/18/2407/2507/07/25 History Right Cockup splint #1 ea 04/21/25 06/20/25 Unkn own Rx fast form #1 ea 04/21/25 06/20/25 Unkn own Rx Allergies Allergy/AdvReac Type Severity Reaction Status Date / Time hydrochlorothiazide AdvReac Severe hyponatremi Verified 07/08/25 06:03 a [facility] Anesthesia Medical History Lower extremity edema Hypertension Hypothyroidism History of echocardiogram 09/21 at [facility] EF 55-60%, normal B atria, mild TR, mild sclerosis AV Left rib fracture 6th rib, seen on CT imaging 2021 History of PFTs 03/2024 severe airflow obstruction, no significant response to bronchodilator, moderately reduced diffusion capacity Right upper lobe pulmonary nodule PET scan done 03/2024 with results under imaging in [facility] COPD (chronic obstructive pulmonary disease) Surgical History History of thoracentesis 09/21 [facility] right effusion, no malignant cells seen Hx of tonsillectomy H/O: hysterectomy History of bronchoscopy 09/21 [facility] History of lung biopsy At [facility] 09/21 RLL nodule, pathology showed benign bronchial was and alveolar tissue focally with features of organizing pneumonia. BAL right lung also done with no malignant cells, no fungi or pneumocystis identified Family History Mother Thyroid disease Father Heart disease Hypertension Son Thyroid disease Daughter Thyroid disease Brother Hypertension Social History Smoking and tobacco/nicotine status: current every day tobacco/nicotine user cigarettes Packs smoked per day: 1 Years cigarettes smoked: 42 [ Other cigarette details: Smoking 42 years in 2023.] Data Anesthesia Cardiac Studies: Echocardiogram 05/18/24
--- NOTE | 2025-07-08 06:30 | W.PM.OPSUD ---
Surgery/Procedure H&P Update DATE OF PROCEDURE: July 08, 2025 DATE H&P PERFORMED: 06/09/25 H&P UPDATE INFORMATION: I have reviewed H&P completed within last 30 days, I have examined patient prior to procedure and No changes to prior documentation PREOP DIAGNOSIS: Left elbow bursitis PLANNED PROCEDURE: Operation Date: 07/08/25 07:00 Proposed Procedures p Bursectomy Elbow Olecranon Bursa Excision(Left) - Tanner White DO
[2025-07-08] MEDS: ceFAZolin 2,000 mg SDV 2000 MG IVP (06:55)
--- NOTE | 2025-07-08 07:48 | PM.OP ---
Operative Report Date of procedure: July 08, 2025 Pre-op diagnosis: . Left elbow bursitis Post-op diagnosis: same Procedure done: Left elbow bursectomy Surgeon: Tanner White DO Estimated blood loss (mL): 5 Procedure: Left elbow bursectomy Patient brought the op suite after undergoing anesthesia was placed in the supine position. All areas of impingement were well-padded. A skin incision was made over the left elbow. Tourniquet was put up prior to this. Bovie was used to undermine the skin and then Metzenbaums scissors were used to dissect out the bursa the bursa was taken down lateral to medial. Being careful not to get near the ulnar nerve. Once the bursa was completely removed wounds were irrigated and wound was closed with 2-0 Vicryl and kiki. Sterile dressings were applied and patient is transferred to the PACU in stable condition.
[2025-07-08] MEDS: fentaNYL 50 mcg/mL INJ 2mL IVP (08:00)
[2025-07-08] MEDS: HYDROcodone-acetaminophen 5-325 mg Tablet 1 TAB PO (08:44)
--- NOTE | 2025-07-08 09:00 | ANE.PACU2 ---
Inpatient post-anesthesia follow up: Airway intact: Yes Vital signs: Temperature 97.0 F Pulse Rate 65 Respiratory Rate 18 Blood Pressure 143/87 Pulse Oximetry 94 Oxygen Delivery Me thod Room Air Oxygen Flow Rate Fraction of Inspir ed Oxygen Hydration adequate: Yes Nausea and vomiting: No Pain level: 1 Mental status: Baseline
== END 2025-07-08 09:00 | disposition home or self-care (01) ==
PROVIDERS: PCP Family Medicine; Visit Provider Orthopaedic Surgery
PROC: (CPT 24105; principal; 2025-07-08 07:00)
DX: M70.32 Other bursitis of elbow, left elbow (principal); J44.9 Chronic obstructive pulmonary disease, unspecified; I10 Essential (primary) hypertension; Z99.81 Dependence on supplemental oxygen; E03.9 Hypothyroidism, unspecified; R91.1 Solitary pulmonary nodule; F17.210 Nicotine dependence, cigarettes, uncomplicated
CPT/HCPCS: 24105; J0690; J1100; J1171; J1885; J2250; J2371; J2405; J2704; J3010; J7030; J9999

== ENCOUNTER → 2025-07-21 14:10 | Outpatient (BNVA) | payer MEDICARE, MEDICAID, SELFPAY | PROVIDERS: PCP Family Medicine; Visit Provider Orthopaedic Surgery | DX: Z98.890 Other specified postprocedural states (principal) | CPT/HCPCS: 73080; 99024 ==